=== PATIENT | female | born 1980 | race Caucasian/White ===

== ENCOUNTER → 2016-09-22 | Outpatient (CLI) | payer OTHER ==
[~2016-09-22] VITALS: Ht 157.5 cm; Wt 139.2 kg
[~2016-09-22] MED LIST: ACET500T13 PO; CHLORHEXIDINE GLUCONATE 2 % 1 PACK (2 CLOTHS) TOPICAL PRN; DO NOT ADM ANY ANTICOAGULANT DRUGS PRN; HYDR25TA5 PO; INSULIN HUMAN REGULAR 1,000 UNITS/10 ML VIAL SQ PRN; LACTATED RINGER'S 1000 ML IV PRN; LISI-519 PO; METOPROLOL TARTRATE 25 MG TAB PO PRN; MIDAZOLAM HCL 2 MG/2 ML VIAL ONE; MULT1CHW33 PO; POVIDONE IODINE 5% (ANTISEPSIS KIT) 4 APPLICATIONS EACH NARE PRN; PROPOFOL 200 MG/20 ML AMP IV ONE; SODIUM CHLORID 0.9% 500 ML IV PRN; VENL1CAP38 PO; VIST25CA PO
[2016-09-22 05:59] VITALS: BP 131/74; PULSE 88; RESP 20; TEMP 98.2; O2SAT 97
--- NOTE | 2016-09-22 07:58 | GIPROC ---
[facility] [address] [facility]. [facility], [address] EGD PROCEDURE REPORT EXAM DATE: 09/22/2016 PATIENT NAME: Massiel Haider MR #: [id number] BIRTHDATE: 1980 ATTENDING: Alexandr To MD ORDER #: [id number] SUPERINTENDENT AUTOMOTIVE: Sloane Cohen and Daphne Mckeon STATUS: outpatient INDICATIONS: The patient is a 36 yr old female here for an EGD due to heartburn, gastritis PROCEDURE PERFORMED: EGD w/ biopsy MEDICATIONS: Per Anesthesia and None. TOPICAL ANESTHETIC: none CONSENT: The patient understands the risks and benefits of the procedure and understands that these risks include, but are not limited to: sedation, allergic reaction, infection, perforation and/or bleeding. Alternative means of evaluation and treatment include, among others: physical exam, x-rays, and/or surgical intervention. The patient elects to proceed with this endoscopic procedure. medical equipment was checked for proper function. Hand hygiene and appropriate measures for infection prevention was taken. After the risks, benefits and alternatives of the procedure were thoroughly explained, Informed consent was verified, confirmed and timeout was successfully executed by the treatment team. The patient was anesthetized with topical anesthesia and the [employer] [id number] endoscope was introduced through the mouth and advanced to the second portion of the duodenum. Biopsy done to antrum for H. Pylori. Distal antrum gastritis. Biopsy done for gastrititis. Retroflexed views revealed no abnormalities The gastroscope was then slowly withdrawn and removed. STOMACH: There was mild gastritis in the gastric antrum. ADVERSE EVENTS: There were no complications. IMPRESSIONS: 1. There was mild gastritis in the gastric antrum 2. Retroflexed views revealed no abnormalities RECOMMENDATIONS: 1. Await biopsy results. Biopsy results will not be ready for 7-10 days. If you don't hear from us in two weeks, call our office for biopsy results. 2. Start PPI PATIENT CONDITION: fair DISPOSITION: Home REPEAT EXAM: NONE Alexandr To MD eSigned: Alexandr To MD 09/22/2016 7:57 AM cc: Hussain Flaherty M.D.
[2016-09-22 09:00] VITALS: BP 135/76; PULSE 82; RESP 18; TEMP 98.9; O2SAT 97
== END ==
LOC: HSDC 05:32
PROVIDERS: ATTEND Surgery
DX: K31.89 Other diseases of stomach and duodenum (principal); K29.70 Gastritis, unspecified, without bleeding; R12 Heartburn; E66.01 Morbid (severe) obesity due to excess calories; Z68.43 Body mass index [BMI] 50.0-59.9, adult
CPT/HCPCS: 00740; 43239; 88305; 88312; J2250; J3010

== ENCOUNTER 2017-02-15 05:21 | Inpatient (IN) | payer OTHER ==
[~2017-02-15] VITALS: Ht 157.5 cm; Wt 125.0 kg
[~2017-02-15 05:21] MED LIST changes: -ACET500T13 PO; -CHLORHEXIDINE GLUCONATE 2 % 1 PACK (2 CLOTHS) TOPICAL PRN; -DO NOT ADM ANY ANTICOAGULANT DRUGS PRN; -INSULIN HUMAN REGULAR 1,000 UNITS/10 ML VIAL SQ PRN; -LACTATED RINGER'S 1000 ML IV PRN; -METOPROLOL TARTRATE 25 MG TAB PO PRN; -MIDAZOLAM HCL 2 MG/2 ML VIAL ONE; +ONETAB13 PO; -POVIDONE IODINE 5% (ANTISEPSIS KIT) 4 APPLICATIONS EACH NARE PRN; -PROPOFOL 200 MG/20 ML AMP IV ONE; -SODIUM CHLORID 0.9% 500 ML IV PRN
[2017-02-15] MEDS ORDERED: ONDANSETRON HCL 4 MG/2 ML VIAL IV PUSH SCH (05:45)
[2017-02-15] MEDS ORDERED: SCOPOLAMINE 1.5 MG PATCH T-DERMAL SCH (05:45)
[2017-02-15] MEDS ORDERED: SODIUM CHLORID 0.9% 500 ML IV PRN (05:45)
[2017-02-15] MEDS ORDERED: CHLORHEXIDINE GLUCONATE 2 % 1 PACK (2 CLOTHS) TOPICAL PRN (05:45)
[2017-02-15] MEDS ORDERED: METOPROLOL TARTRATE 25 MG TAB PO PRN (05:45)
[2017-02-15] MEDS ORDERED: ceFAZolin 2 GM PREMIX 50 ML IV SCH (05:45)
[2017-02-15] MEDS ORDERED: LACTATED RINGER'S 1000 ML IV PRN (05:45)
[2017-02-15] MEDS ORDERED: POVIDONE IODINE 5% (ANTISEPSIS KIT) 4 APPLICATIONS EACH NARE PRN (05:45)
[2017-02-15] MEDS ORDERED: metroNIDAZOLE 500 MG INJ 100 ML IV SCH (05:45)
[2017-02-15] MEDS ORDERED: ACETAMINOPHEN 1000 MG/100 ML 100 ML IV SCH (06:00)
[2017-02-15] MEDS ORDERED: APREPITANT 40 MG CAP PO SCH (06:00)
[2017-02-15] MEDS ORDERED: ECHI1CAP PO (06:08)
[2017-02-15] MEDS ORDERED: ACETAMINOPHEN 1000 MG/100 ML 100 ML IV ONE (06:46)
[2017-02-15] MEDS ORDERED: BUPIVACAINE/EPINEPHRINE 0.25% 50 ML VIAL ONE (07:06)
[2017-02-15] MEDS ORDERED: METHYLENE BLUE 10 MG/ML VIAL OTHER ONE (09:12)
[2017-02-15] MEDS ORDERED: diphenhydrAMINE HCL ELIXIR 12.5 MG/5 ML CUP PO PRN (11:15)
[2017-02-15] MEDS ORDERED: NALOXONE HCL 0.4 MG/ML AMP IV PUSH PRN (11:15)
[2017-02-15] MEDS ORDERED: Post-op Orders (for Pharmacy) OTHER ONE (11:15)
[2017-02-15] MEDS ORDERED: ENALAPRILAT 1.25 MG/ML VIAL IV PUSH PRN (11:15)
[2017-02-15] MEDS ORDERED: ACETAMINOPHEN 325MG/HYDROcodone 7.5MG/15ML UDC PO PRN (11:15)
[2017-02-15] MEDS ORDERED: *morphine SULFATE 4 MG/ML PERIprocedure ONLY ONE (11:42)
[2017-02-15] MEDS ORDERED: DO NOT ADM ANY ANTICOAGULANT DRUGS PRN (11:44)
[2017-02-15] MEDS ORDERED: *PROMETHAZINE 25 MG/ML VIAL PERIprocedural use ONLY ONE (11:50)
[2017-02-15] MEDS ORDERED: KETOROLAC TROMETHAMINE 30 MG/ML (IVP) VIAL ONE (11:54)
[2017-02-15] MEDS ORDERED: LACTATED RINGER'S 1000 ML INJ 2,000 ML IV ONE (12:00)
[2017-02-15] MEDS ORDERED: DEXAMETHASONE SOD PHOS 4 MG/ML VIAL IV ONE (12:00)
[2017-02-15] MEDS ORDERED: PROPOFOL 200 MG/20 ML AMP IV ONE (12:00)
[2017-02-15] MEDS ORDERED: NORMOSOL R INJ 1,000 ML IV ONE (12:00)
[2017-02-15] MEDS ORDERED: VECURONIUM BROMIDE 20 MG VIAL IV ONE (12:00)
[2017-02-15] MEDS ORDERED: LIDOCAINE HCL 1% PF 5 ML SYRINGE OTHER ONE (12:00)
[2017-02-15] MEDS ORDERED: ePHEDrine/NS 25 MG/5 ML SYRINGE IV ONE (12:00)
[2017-02-15] MEDS ORDERED: ROCURONIUM INJ 50 MG/5 ML SYRINGE IV PUSH ONE (12:00)
[2017-02-15] MEDS ORDERED: *MEPERIDINE 25 MG INJ VIAL PERIprocedural Use ONLY ONE (12:02)
[2017-02-15] MEDS: METOCLOPRAMIDE HCL 10 MG/2 ML VIAL IV PUSH SCH ×2 (13:00→19:52)
[2017-02-15] MEDS: D5-1/2 NS + KCL 20 MEQ INJ 1,000 ML IV SCH ×2 (13:00→19:30)
[2017-02-15] MEDS: ACETAMINOPHEN 1000 MG/100 ML 100 ML IV SCH ×2 (13:00→19:55)
[2017-02-15] MEDS: MORPHINE SULFATE 30 MG/30 ML PCA IV SCH ×2 (13:08→22:44)
[2017-02-15 13:38] VITALS: BP 123/59; PULSE 53; RESP 18; TEMP 97.4; O2SAT 98
[2017-02-15] MEDS: metroNIDAZOLE 500 MG INJ 100 ML IV SCH ×2 (15:18→23:22)
[2017-02-15] MEDS: ENOXAPARIN SODIUM 40 MG/0.4 ML SYRINGE SQ SCH (15:19)
[2017-02-15 16:00] VITALS: BP 123/61; PULSE 57; RESP 18; TEMP 97.4; O2SAT 99
[2017-02-15] MEDS: diphenhydrAMINE HCL 50 MG/ML VIAL IV PUSH PRN (19:54)
[2017-02-15 20:00] VITALS: BP 117/64; PULSE 60; RESP 21; TEMP 96.2; O2SAT 92
[2017-02-15] MEDS: SODIUM CHLORIDE 0.9% FLUSH 10 ML FLUSH IV FLUSH SCH (20:03)
[2017-02-15 20:22] VITALS: O2SAT 96
[2017-02-15] MEDS: RESP: ALBUTEROL 2.5 MG/3 ML NEB (SCH) INH (20:22)
[2017-02-15] MEDS: PCA - TOTAL MG MORPHINE DELIVERED PER SHIFT SCH (22:00)
[2017-02-16] VITALS (8 sets, daily range): BP systolic 102–140; BP diastolic 53–80; PULSE 55–90; RESP 17–21; TEMP 96.2–98.6; O2SAT 92–99
[2017-02-16] MEDS: RESP: ALBUTEROL 2.5 MG/3 ML NEB (SCH) INH ×6 (00:35→20:00)
[2017-02-16] MEDS: METOCLOPRAMIDE HCL 10 MG/2 ML VIAL IV PUSH SCH ×2 (00:43→06:03)
[2017-02-16] MEDS: diphenhydrAMINE HCL 50 MG/ML VIAL IV PUSH PRN ×6 (00:43→20:57)
[2017-02-16] MEDS: ACETAMINOPHEN 1000 MG/100 ML 100 ML IV SCH ×2 (01:37→07:09)
[2017-02-16] MEDS: D5-1/2 NS + KCL 20 MEQ INJ 1,000 ML IV SCH ×3 (03:30→17:45)
[2017-02-16] MEDS: PCA - TOTAL MG MORPHINE DELIVERED PER SHIFT SCH (06:00)
[2017-02-16] MEDS: metroNIDAZOLE 500 MG INJ 100 ML IV SCH (06:04)
[2017-02-16] MEDS: PANTOPRAZOLE SOD 40 MG DELAYED RELEASE TAB PO SCH (08:41)
[2017-02-16] MEDS: SODIUM CHLORIDE 0.9% FLUSH 10 ML FLUSH IV FLUSH SCH ×2 (08:43→20:30)
--- NOTE | 2017-02-16 10:08 | HHI.PR ---
Subjective Subjective Notes pt comfortable no cp no sob c/o itching Objective Vitals/I&O Vital Signs Date Time Temp Pulse Resp B/P (MAP) Pulse Ox O2 Delivery O2 Flow Rate FiO2 02/16/17 08:56 93 02/16/17 08:00 97.9 82 19 107/61 (76) 02/15/17 20:22 21 02/15/17 13:25 Nasal Cannula 3 Abdomen: Post-op tenderness Extremities: Perfused Narrative Exam macey serosang Wound Wound : Wound Location: Abdomen Appearance: Clean & Dry A/P Assessment and Plan S/P lap DS pt doing well will get UGI in am ok for ice chips ambulate Hussain Flaherty MD Feb 16, 2017 10:08
[2017-02-16] MEDS ORDERED: NALOXONE HCL 0.4 MG/ML AMP IV PUSH PRN (10:15)
[2017-02-16] MEDS: ONDANSETRON HCL 4 MG/2 ML VIAL IV PUSH PRN ×2 (10:35→20:57)
[2017-02-16] MEDS: HYDROmorphone HCL PCA 6 MG/30 ML IV SCH (10:56)
[2017-02-16] MEDS ORDERED: METOCLOPRAMIDE HCL 10 MG/2 ML VIAL IV PUSH PRN (11:15)
[2017-02-16 11:37] LABS: AUTOMATED NEUTROPHIL # 7.5 TH/MM3 (1.8-7.7); BASOPHIL % 0.2 % (0.0-2.0); HEMOGLOBIN 11.3 GM/DL (11.6-15.3); LYMPH % 21.7 % (9.0-44.0); LYMPHOCYTE # 2.3 TH/MM3 (1.0-4.8); MEAN CELL VOLUME 85.9 FL (80.0-100.0); MEAN CORPUSCULAR HEMOGLOBIN 28.6 PG (27.0-34.0); MEAN CORPUSCULAR HGB CONC 33.3 % (32.0-36.0); MEAN PLATELET VOLUME 8.5 FL (7.0-11.0); MONO % 6.9 % (0.0-8.0); MONOCYTE # 0.7 TH/MM3 (0-0.9); NEUT % 71.2 % (16.0-70.0); PLATELET COUNT 264 TH/MM3 (150-450); RED BLOOD COUNT 3.95 MIL/MM3 (4.00-5.30); RED CELL DISTRIBUTION WIDTH 15.5 % (11.6-17.2); WHITE BLOOD COUNT 10.6 TH/MM3 (4.0-11.0)
[2017-02-16 12:03] LABS: BICARBONATE 26.5 MEQ/L (21.0-32.0); CALCIUM 8.2 MG/DL (8.5-10.1); CREATININE 0.53 MG/DL (0.50-1.00)
[2017-02-16] MEDS: PCA - TOTAL MG DILAUDID DELIVERED PER SHIFT SCH ×2 (14:00→22:00)
[2017-02-16] MEDS: POTASSIUM CHLOR 20 MEQ PREMIX 100 ML IV SCH ×2 (16:14→17:44)
[2017-02-16] MEDS: ENOXAPARIN SODIUM 40 MG/0.4 ML SYRINGE SQ SCH (16:15)
[2017-02-17] VITALS (8 sets, daily range): BP systolic 117–154; BP diastolic 53–91; PULSE 67–100; RESP 18; TEMP 98.6–99.2; O2SAT 95–99
[2017-02-17] MEDS: ACETAMINOPHEN 325MG/HYDROcodone 7.5MG/15ML UDC PO PRN ×6 (00:28→20:37)
[2017-02-17] MEDS: HYDROmorphone HCL PCA 6 MG/30 ML IV SCH (00:31)
[2017-02-17] MEDS: RESP: ALBUTEROL 2.5 MG/3 ML NEB (SCH) INH ×2 (03:27)
[2017-02-17] MEDS: D5-1/2 NS + KCL 20 MEQ INJ 1,000 ML IV SCH ×3 (03:30→18:02)
[2017-02-17] MEDS: diphenhydrAMINE HCL 50 MG/ML VIAL IV PUSH PRN (04:26)
[2017-02-17] MEDS: ONDANSETRON HCL 4 MG/2 ML VIAL IV PUSH PRN ×4 (04:26→20:37)
[2017-02-17] MEDS: PCA - TOTAL MG DILAUDID DELIVERED PER SHIFT SCH ×4 (05:33→20:45)
[2017-02-17] MEDS: SODIUM CHLORIDE 0.9% FLUSH 10 ML FLUSH IV FLUSH SCH ×2 (08:12→20:32)
[2017-02-17] MEDS: PANTOPRAZOLE SOD 40 MG DELAYED RELEASE TAB PO SCH ×2 (09:00→20:36)
[2017-02-17] MEDS ORDERED: DIATRIZOATE MEGLUM/DIATRIZOATE SOD 120 ML BTL (for RAD DIAG) PO ONE (10:26)
--- NOTE | 2017-02-17 12:09 | RADRPT ---
EXAM DATE/TIME: 02/17/2017 09:44 [facility] COMPARISON: No previous studies available for comparison. INDICATIONS : Duodenal Switch. FLUORO TIME: 1.8 minutes IMAGE COUNT: 2 CONTRAST: 1. MD Lombardo MEDICAL HISTORY : None. SURGICAL HISTORY : Hysterectomy. ENCOUNTER: Subsequent ACUITY: 2 days PAIN SCORE: 4/10 LOCATION: Bilateral Abdomen. FINDINGS: Patient ingested Gastrografin without difficulty. Gastroesophageal junction is unremarkable. Postsurgical changes are seen in the stomach following gastric sleeve surgery. The gastric wall is in tact without evidence of leakage. A duodenal enterostomy has been created. There is satisfactory flow into the efferent limb there is s mall collection of contrast is seen to the left of the anastomosis which may represent the small affe rent blind limb. There is no identifiable free leakage of Gastrografin. CONCLUSION: Status post gastric sleeve surgery and duodenal enterostomy bypass as described. Cornell Grant MD on February 17, 2017 at 12:05 Board Certified Radiologist. This report was verified electronically.
--- NOTE | 2017-02-17 12:16 | HHI.PR ---
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
[2017-02-17] MEDS ORDERED: METHYLENE BLUE 10 MG/ML VIAL PO ONE (13:15)
[2017-02-17 13:25] LABS: AUTOMATED NEUTROPHIL # 6.3 TH/MM3 (1.8-7.7); BASOPHIL # 0.1 TH/MM3 (0-0.2); BASOPHIL % 0.6 % (0.0-2.0); HEMATOCRIT 35.2 % (35.0-46.0); HEMOGLOBIN 11.5 GM/DL (11.6-15.3); LYMPH % 19.1 % (9.0-44.0); LYMPHOCYTE # 1.6 TH/MM3 (1.0-4.8); MEAN CELL VOLUME 87.3 FL (80.0-100.0); MEAN CORPUSCULAR HEMOGLOBIN 28.6 PG (27.0-34.0); MEAN CORPUSCULAR HGB CONC 32.8 % (32.0-36.0); MEAN PLATELET VOLUME 8.3 FL (7.0-11.0); MONO % 7.5 % (0.0-8.0); MONOCYTE # 0.7 TH/MM3 (0-0.9); NEUT % 72.8 % (16.0-70.0); PLATELET COUNT 256 TH/MM3 (150-450); RED BLOOD COUNT 4.03 MIL/MM3 (4.00-5.30); RED CELL DISTRIBUTION WIDTH 15.4 % (11.6-17.2); WHITE BLOOD COUNT 8.6 TH/MM3 (4.0-11.0)
[2017-02-17] MEDS: ENOXAPARIN SODIUM 40 MG/0.4 ML SYRINGE SQ SCH (17:07)
[2017-02-18] VITALS: BP 133/74; PULSE 68; RESP 18; TEMP 99.5; O2SAT 96
[2017-02-18] MEDS: D5-1/2 NS + KCL 20 MEQ INJ 1,000 ML IV SCH ×3 (00:42→16:44)
[2017-02-18] MEDS: ACETAMINOPHEN 325MG/HYDROcodone 7.5MG/15ML UDC PO PRN ×5 (00:42→20:58)
[2017-02-18 08:00] VITALS: BP 133/77; PULSE 70; RESP 18; TEMP 97.4; O2SAT 100
[2017-02-18] MEDS: SODIUM CHLORIDE 0.9% FLUSH 10 ML FLUSH IV FLUSH SCH ×2 (08:56→20:57)
[2017-02-18] MEDS: ONDANSETRON HCL 4 MG/2 ML VIAL IV PUSH PRN ×3 (08:57→22:53)
[2017-02-18] MEDS: PANTOPRAZOLE SOD 40 MG DELAYED RELEASE TAB PO SCH (08:58)
[2017-02-18 12:00] VITALS: BP 144/80; PULSE 75; RESP 18; TEMP 96.8; O2SAT 100
--- NOTE | 2017-02-18 12:15 | HHI.PR ---
Subjective Subjective Notes pt denies cp no sob no nausea Objective Vitals/I&O Vital Signs Date Time Temp Pulse Resp B/P (MAP) Pulse Ox O2 Delivery O2 Flow Rate FiO2 02/18/17 12:00 96.8 75 18 144/80 (101) 100 02/17/17 17:34 21 02/15/17 13:25 Nasal Cannula 3 Labs Laboratory Tests Test 02/17/17 12:20 02/17/17 12:53 White Blood Count 8.6 Red Blood Count 4.03 Hemoglobin 11.5 Hematocrit 35.2 Mean Corpuscular Volume 87.3 Mean Corpuscular Hemoglobin 28.6 Mean Corpuscular Hemoglobin Concent 32.8 Red Cell Distribution Width 15.4 Platelet Count 256 Mean Platelet Volume 8.3 Neutrophils (%) (Auto) 72.8 Lymphocytes (%) (Auto) 19.1 Monocytes (%) (Auto) 7.5 Eosinophils (%) (Auto) 0.0 Basophils (%) (Auto) 0.6 Neutrophils # (Auto) 6.3 Lymphocytes # (Auto) 1.6 Monocytes # (Auto) 0.7 Eosinophils # (Auto) 0.0 Basophils # (Auto) 0.1 CBC Comment DIFF FINAL Differential Comment Radiology Last Impressions Upper GI Series 02/17/17 0700 Signed Impressions: Service Date/Time: Friday, February 17, 2017 09:44 - CONCLUSION: Status post gastric sleeve surgery and duodenal enterostomy bypass as described. Cornell Grant MD Abdomen: Post-op tenderness Extremities: Perfused Narrative Exam macey serosang Wound Wound : Wound Location: Abdomen Appearance: Clean & Dry A/P Assessment and Plan S/P lap DS pt doing well no evidence on leak will start phase 1 diet ambulate decrease IVF start back home meds Hussain Flaherty MD Feb 18, 2017 12:15
[2017-02-18] MEDS: VENLAFAXINE HCL XR 37.5 MG CAP PO SCH (12:22)
[2017-02-18 12:47] LABS: AMYLASE BODY FLUID 31 U/L; AMYLASE BODY FLUID TYPE JP DRAINAGE
[2017-02-18 16:00] VITALS: BP 113/67; PULSE 74; RESP 18; TEMP 98.7; O2SAT 99
[2017-02-18] MEDS: ENOXAPARIN SODIUM 40 MG/0.4 ML SYRINGE SQ SCH (16:19)
[2017-02-18 20:21] VITALS: BP 129/72; PULSE 67; RESP 20; TEMP 99.7; O2SAT 95
[2017-02-18] MEDS: SODIUM CHLORIDE 0.9% FLUSH 10 ML FLUSH IV FLUSH PRN (22:53)
[2017-02-19 00:08] VITALS: BP 150/85; PULSE 65; RESP 20; TEMP 98; O2SAT 97
[2017-02-19] MEDS: ACETAMINOPHEN 325MG/HYDROcodone 7.5MG/15ML UDC PO PRN ×4 (01:17→13:23)
[2017-02-19] MEDS: D5-1/2 NS + KCL 20 MEQ INJ 1,000 ML IV SCH ×2 (03:39→12:45)
[2017-02-19] MEDS: ONDANSETRON HCL 4 MG/2 ML VIAL IV PUSH PRN ×2 (05:23→13:23)
[2017-02-19] MEDS: SODIUM CHLORIDE 0.9% FLUSH 10 ML FLUSH IV FLUSH PRN (05:25)
[2017-02-19 08:00] VITALS: BP 129/86; PULSE 61; RESP 18; TEMP 96.6; O2SAT 94
[2017-02-19] MEDS: VENLAFAXINE HCL XR 37.5 MG CAP PO SCH (08:24)
[2017-02-19] MEDS: PANTOPRAZOLE SOD 40 MG DELAYED RELEASE TAB PO SCH (08:24)
[2017-02-19] MEDS: SODIUM CHLORIDE 0.9% FLUSH 10 ML FLUSH IV FLUSH SCH (09:00)
[2017-02-19 12:00] VITALS: BP 167/75; PULSE 66; RESP 16; TEMP 97.6; O2SAT 95
--- NOTE | 2017-03-01 13:06 | MP ---
cc: MARILEEHOLLIE DATE OF SURGERY 02/15/2017 DATE OF 1980 PREOPERATIVE DIAGNOSIS Super obesity with a BMI of 50, complicated by essential hypertension and obstructive sleep apnea. POSTOPERATIVE DIAGNOSIS Super obesity with a BMI of 50, complicated by essential hypertension and obstructive sleep apnea. PROCEDURE Laparoscopic duodenal switch, 120 cm common channel, 150 cm alimentary tract. SURGEON Hollie Flaherty. GIS DEVELOPER SURGEON Alexandr To. Dr. To's assistance was necessary for the procedure due to the complexity of the procedure. Dr. To assisted with manipulation and exposure during the procedure. Dr. To was present for the entire procedure. The advertising assistant manager provided by [employer] was utilized for managing the camera. ANESTHESIA General endotracheal. ESTIMATED BLOOD LOSS Scant. FINDINGS During the leak test there was a leak just distal to the anastomosis. This was closed in a simple interrupted manner and a second leak test performed was negative for leaks. Fatty liver. SPECIMEN None. COMPLICATIONS None. OPERATION The patient was brought to the operating room and placed on the operating table in a supine position. A bilateral sequential inflation device was placed on the lower extremities. General anesthesia was instituted. A Tipton catheter was placed. Antibiotics were initiated. The abdomen was prepped and draped sterilely. A point in the periumbilical region was anesthetized with 0.25% Marcaine with epinephrine. A skin incision was made. A 5 mm Optiview port was placed under direct vision and pneumoperitoneum created. Under direct vision two 12 mm left upper quadrant and a 5 mm left lower quadrant port was placed. Two 12 mm right upper quadrant ports and a 5 mm epigastric port were placed. Prior to placement of all ports the skin and peritoneum were anesthetized with 0.25% Marcaine with epinephrine. The patient was placed in reverse Trendelenburg position. A Lay-Flex retractor was placed and the left lobe of the liver was retracted. The falciform ligament was taken out of the field using a 2-0 nylon suture. Attention was focused on the duodenum. The pylorus was identified. A point 3 cm distal along the duodenum was identified. The peritoneum both medially and laterally along the duodenal bulb was dissected minimally using the Harmonic scalpel. The posterior duodenal space was further dissected using a Gold Finger followed by the laparoscopic band passer. The duodenum was then stapled 3 cm distal to the pylorus using the Lockhart Flex power stapler blue load. Bleeding points were controlled using the Harmonic. Attention was then focused on the stomach. The patient was placed with her left side up. The vasculature along the greater curvature of the stomach was using the Harmonic scalpel starting a distance of approximately 10 cm proximal to the pylorus. This was carried towards the angle of His. The angle of His was taken down sharply. The posterior ligamentous attachment was sharply . A 36-Swedish ViSiGi bougie was placed at the start of the case. Division of the stomach was then started approximately 10 cm proximal to the pylorus. This was performed using an Lockhart Flex stapler. This was carried towards the angle of His to excise approximately 60% of the stomach. The bougie was used as a guide and the stapler at no point was hugging the bougie. The first firing was with a green load followed by three gold loads. All staple loads were reinforced with Seamguard. The gastrocolic ligament was then sutured to the posterior leaflet of the Seamguard. Attention was then focused on the lower abdomen. The patient was placed in Trendelenburg position. The ileocecal valve was identified. The bowel was measured proximally from the ileocecal valve to a distance of 120 cm. This was to be the common channel. This was marked with hemoclips. The regimen was carried further from this [place] another 150 cm proximally. The small bowel was divided in this region using an Lockhart Flex stapler white load. The distal segment was marked. It was then brought up to the duodenum and a duodenoileostomy was created using a single layer handsewn anastomosis. The biliopancreatic limb was then brought down to the clips that were marked initially at 120 cm and a ileoileostomy was created using an Lockhart Flex stapler white load. Two firings were taken, one proximally and one distally to create the anastomosis. The defect was then stapled closed. The defect at the ileostomy in the mesentery was then closed with 2-0 silk suture in a running manner. Attention was then focused back at the duodenoileostomy. The bowel was clamped distal to the anastomosis. Methylene blue diluted with saline was instilled through the ViSiGi. The stomach was distended as well as the proximal bowel. There was extravasation of contrast. The source of extravasation was identified. A hole in the small bowel distal to the anastomosis posteriorly was closed with 3-0 Vicryl in an interrupted manner. A second leak test was performed and there was no leak at the end of the procedure. A 10 round MILANA was placed posterior to the gastrojejunostomy and pulled out through the 5 mm port site in the left upper quadrant. Evicel was then placed over the duodenoileostomy and ileoileostomy. The Lay-Flex retractor was then removed. The CO2 was released. All ports were removed. All skin incisions were closed with 4-0 Monocryl. The patient was awakened and taken to the recovery room stable. MD BRAN Henriquez/ANUSHA /9:57 AM /12:42 PM [facility]
== END 2017-02-19 15:10 | disposition home or self-care (01) | DRG 621 ==
LOC: HSDI 05:21 → N07B 13:37
PROVIDERS: ADMIT Surgery; ATTEND Surgery
PROC: 0D194ZB Bypass Duodenum to Ileum, Percutaneous Endoscopic Approach (ICD-10-PCS; principal; 2017-02-15 07:29)
DX: E66.01 Morbid (severe) obesity due to excess calories (principal); K76.0 Fatty (change of) liver, not elsewhere classified; I10 Essential (primary) hypertension; G47.30 Sleep apnea, unspecified; Z87.891 Personal history of nicotine dependence; Z68.43 Body mass index [BMI] 50.0-59.9, adult; G47.33 Obstructive sleep apnea (adult) (pediatric)
CPT/HCPCS: 74240; 80048; 82150; 83735; 85025; 94150; 94640; 94664; J0131; J0690; J1100; J1170; J1200; J1650; J1885; J2175; J2270; J2405; J2550; J2765; J3480; J7120; J7613; J8501; Q9963

== ENCOUNTER 2017-02-24 14:09 | Emergency (ER) | payer MEDICAID, OTHER ==
[~2017-02-24] VITALS: Ht 157.5 cm; Wt 127.0 kg
[~2017-02-24 14:09] MED LIST changes: +ECHI1CAP PO; -MULT1CHW33 PO
[2017-02-24 14:10] VITALS: BP 176/83; PULSE 58; RESP 18; TEMP 99.1; O2SAT 99
[2017-02-24] MEDS ORDERED: ONDANSETRON HCL 4 MG/2 ML VIAL IM ONE (14:30)
[2017-02-24] MEDS ORDERED: ZOFR4TAB3 SL (14:49)
[2017-02-24] MEDS ORDERED: HYDR1ELX PO (14:49)
[2017-02-24] MEDS ORDERED: MORPHINE SULFATE 4 MG/ML INJ IV PUSH ONE (15:15)
[2017-02-24] MEDS ORDERED: ONDANSETRON HCL 4 MG/2 ML VIAL IVP ONE (15:15)
[2017-02-24] MEDS ORDERED: SODIUM CHLORIDE 0.9% FLUSH 10 ML FLUSH IV FLUSH PRN (15:15)
[2017-02-24 15:22] VITALS: PULSE 57; RESP 16; O2SAT 96
[2017-02-24] MEDS ORDERED: MORPHINE SULFATE 2 MG/ML INJ IV PUSH ONE ×2 (15:30→17:00)
[2017-02-24 15:43] LABS: WHITE BLOOD COUNT 9.6 TH/MM3 (4.0-11.0)
[2017-02-24 15:44] LABS: AUTOMATED NEUTROPHIL # 8.7 TH/MM3 (1.8-7.7); BASOPHIL % 0.3 % (0.0-2.0); HEMATOCRIT 36.4 % (35.0-46.0); HEMOGLOBIN 12.3 GM/DL (11.6-15.3); LYMPH % 8.1 % (9.0-44.0); LYMPHOCYTE # 0.8 TH/MM3 (1.0-4.8); MEAN CELL VOLUME 85.7 FL (80.0-100.0); MEAN CORPUSCULAR HGB CONC 33.8 % (32.0-36.0); MEAN PLATELET VOLUME 8.1 FL (7.0-11.0); MONO % 1.5 % (0.0-8.0); MONOCYTE # 0.1 TH/MM3 (0-0.9); NEUT % 90.1 % (16.0-70.0); PLATELET COUNT 355 TH/MM3 (150-450); RED BLOOD COUNT 4.25 MIL/MM3 (4.00-5.30); RED CELL DISTRIBUTION WIDTH 14.9 % (11.6-17.2)
[2017-02-24 15:52] LABS: INTERNATIONAL NORMALIZED RATIO 1.1 RATIO; PROTHROMBIN TIME - PATIENT 11.1 SEC (9.8-11.6)
[2017-02-24 16:05] LABS: ALBUMIN 3.4 GM/DL (3.4-5.0); ALT (GPT) 42 U/L (10-53); AST (GOT) 18 U/L (15-37); BICARBONATE 20.6 MEQ/L (21.0-32.0); BLOOD UREA NITROGEN 9 MG/DL (7-18); CALCIUM 8.6 MG/DL (8.5-10.1); CHLORIDE 104 MEQ/L (98-107); CREATININE 0.51 MG/DL (0.50-1.00); GLOMERULAR FILTRATION RATE 137 ML/MIN (>89); GLUCOSE,RANDOM 106 MG/DL (74-106); LIPASE 80 U/L (73-393); SODIUM (NA) 138 MEQ/L (136-145)
[2017-02-24 16:13] LABS: ALKALINE PHOSPHATASE 106 U/L (45-117); TOTAL BILIRUBIN ADULT 0.3 MG/DL (0.2-1.0); TOTAL PROTEIN 7.4 GM/DL (6.4-8.2)
--- NOTE | 2017-02-24 16:33 | RADRPT ---
EXAM DATE/TIME: 02/24/2017 16:06 [facility] COMPARISON: GASTROGRAFIN GI SERIES, February 17, 2017, 9:44. INDICATIONS : Vomiting, abdominal pain starting today. Post op duodenal switch 1 week ago FLUORO TIME: 1.1 minutes IMAGE COUNT: 11 CONTRAST: 1. MD Lombardo MEDICAL HISTORY : None. SURGICAL HISTORY : Hysterectomy. ENCOUNTER: Initial ACUITY: 1 day PAIN SCORE: 10/10 LOCATION: Bilateral abdomen FINDINGS: Preliminary film is unremarkable. Patient has had duodenal switch. This is small linear gastric remnant. The duodenal anastomosis is patent with some edema evident. This does not impede the flow of Gastrografin. There is no leak in the enteric limb anastomosis. CONCLUSION: Minimal edema at the anastomosis that does not impede the flow of Gastrografin into t he enteric limb. Justin Gilbert MD FACR on February 24, 2017 at 16:28 Board Certified Radiologist. This report was verified electronically.
[2017-02-24] MEDS ORDERED: DIATRIZOATE MEGLUM/DIATRIZOATE SOD 120 ML BTL (for RAD DIAG) PO ONE (16:38)
--- NOTE | 2017-02-24 16:46 | PD ---
HPI Chief Complaint: Abdominal Pain Time Seen by Provider: 14:54 Travel History International Travel<30 days: No Contact w/Intl Traveler<30days: No Traveled to known affect area: No History of Present Illness HPI 37-year-old female that presents to the ED for evaluation of abdominal pain. Patient had recent surgery for a laparoscopic DS by Dr Flaherty. Been doing well since surgery until this morning when she woke up with severe epigastric pain. Seen at Dr Flaherty's office, given zofran PO and sent here for evaluation. Per patient pain is 10/10. Nausea and vomit. Per patient it felt like vomit smelled like stool. Yesterday she started eating puree. She has been in liquid diet before. No fevers, chills or sweats. No blood. No diarrhea. No chest pain or SOB. Take no blood thinners. Pain stays on epigastric area. No allergies to meds. PFSH Past Medical History Cancer: No Cardiovascular Problems: No Diabetes: No Endocrine: No Gastrointestinal Disorders: Yes ( OBESITY) Genitourinary: No Hepatitis: No Hiatal Hernia: No Hypertension: Yes Immune Disorder: Yes (RA) Musculoskeletal: Yes (RA) Neurologic: No Psychiatric: Yes (DEPRESSION, ANXIETY) Reproductive: No Respiratory: Yes ( SLEEP APNEA WITH CPAP) Thyroid Disease: No Tetanus Vaccination: < 5 Years ?: Not Past Surgical History Abdominal Surgery: Yes (Lap [place] 2014, DUODENAL SWITCH) AICD: No Ear Surgery: No Endocrine Surgery: No Eye Surgery: No Genitourinary Surgery: No Gynecologic Surgery: Yes (hysterectomy) Hysterectomy: Yes Joint Replacement: No Oral Surgery: Yes (TUBES IN EARS CHILD) Pacemaker: No Thoracic Surgery: No Other Surgery: Yes Social History Alcohol Use: No Tobacco Use: No Substance Use: No Allergies-Medications (Allergen,Severity, Reaction): Coded Allergies: No Known Allergies (Unverified Allergy, Unknown, 02/24/17) adhesive tape (Verified Allergy, Unknown, TERRIBLE RASH, 02/24/17) PAPER TAPE OK, STERI STRIPS OK Reported Meds & Prescriptions Reported Meds & Active Scripts Active Reported Zofran Odt (Ondansetron Odt) 4 Mg Tab 4 Mg SL Q6HR PRN Lortab Liq (Hydrocodone-Acetaminophen Liq) 10-300 Mg/15 Ml Elix 15 Ml PO Q6H PRN One Daily For Women (Multiple Vitamins W/ Minerals) 0.4 Mg-18 Mg Tab 0.4 Tab PO DAILY Effexor XR 24 HR (Venlafaxine HCl) 37.5 Mg Cap 37.5 Mg PO DAILY Review of Systems Except as stated in HPI: all other systems reviewed are Neg Physical Exam Narrative GENERAL: SKIN: Warm and dry. HEAD: Atraumatic. Normocephalic. EYES: Pupils equal and round. No scleral icterus. No injection or drainage. ENT: No nasal bleeding or discharge. Mucous membranes pink and moist. Tongue is midline, no uvula deviation. NECK: Trachea midline. No JVD. CARDIOVASCULAR: Regular rate and rhythm. no murmurs, S3, S4. RESPIRATORY: No accessory muscle use. Clear to auscultation. Breath sounds equal bilaterally. GASTROINTESTINAL: Abdomen soft, tender to tough on the epigastric area, has healing surgical scars to the abdomen with no obvious purulence or induration, nondistended. Hepatic and splenic margins not palpable. MUSCULOSKELETAL: Extremities without clubbing, cyanosis, or edema. No obvious deformities. full ROM of the upper and lower extremities bilaterally. 2+ pulses bilaterally. NEUROLOGICAL: Awake and alert. No obvious cranial nerve deficits. Motor grossly within normal limits. Five out of 5 muscle strength in the arms and legs. Normal speech. PSYCHIATRIC: Appropriate mood and affect; insight and judgment normal. Data Data Last Documented VS Vital Signs Date Time Temp Pulse Resp B/P (MAP) Pulse Ox O2 Delivery O2 Flow Rate FiO2 02/24/17 18:53 02/24/17 17:00 62 16 97 Room Air 02/24/17 14:10 99.1 Orders Orders Ondansetron Inj (Zofran Inj) (02/24/17 14:30) Complete Blood Count With Diff (02/24/17 15:01) Comprehensive Metabolic Panel (02/24/17 15:01) Lipase (02/24/17 15:01) Lactic Acid (02/24/17 15:01) Prothrombin Time / Inr (Pt) (02/24/17 15:01) Act Partial Throm Time (Ptt) (02/24/17 15:01) Iv Access Insert/Monitor (02/24/17 15:01) Ecg Monitoring (02/24/17 15:01) Oximetry (02/24/17 15:01) Morphine Inj (Morphine Inj) (02/24/17 15:15) Ondansetron Inj (Zofran Inj) (02/24/17 15:15) Sodium Chloride 0.9% Flush (Ns Flush) (02/24/17 15:15) Ct Abd/Pel W Iv Contrast(Rout) (02/24/17 ) Morphine Inj (Morphine Inj) (02/24/17 15:30) Bhcg Screen Qualitative (02/24/17 15:21) Gastrografin Gi Series (02/24/17 ) Diatrizoate Liq ( Gastroview Liq) (02/24/17 16:38) Iohexol 350 Inj (Omnipaque 350 Inj) (02/24/17 16:50) Morphine Inj (Morphine Inj) (02/24/17 17:00) Sodium Chlor 0.9% 1000 Ml Inj (Ns 1000 M (02/24/17 17:15) Promethazine Inj (Phenergan Inj) (02/24/17 17:30) Ed Discharge Order (02/24/17 18:13) Labs Laboratory Tests Test 02/24/17 15:13 White Blood Count 9.6 TH/MM3 Red Blood Count 4.25 MIL/MM3 Hemoglobin 12.3 GM/DL Hematocrit 36.4 % Mean Corpuscular Volume 85.7 FL Mean Corpuscular Hemoglobin 29.0 PG Mean Corpuscular Hemoglobin Concent 33.8 % Red Cell Distribution Width 14.9 % Platelet Count 355 TH/MM3 Mean Platelet Volume 8.1 FL Neutrophils (%) (Auto) 90.1 % Lymphocytes (%) (Auto) 8.1 % Monocytes (%) (Auto) 1.5 % Eosinophils (%) (Auto) 0.0 % Basophils (%) (Auto) 0.3 % Neutrophils # (Auto) 8.7 TH/MM3 Lymphocytes # (Auto) 0.8 TH/MM3 Monocytes # (Auto) 0.1 TH/MM3 Eosinophils # (Auto) 0.0 TH/MM3 Basophils # (Auto) 0.0 TH/MM3 CBC Comment DIFF FINAL Differential Comment Prothrombin Time 11.1 SEC Prothromb Time International Ratio 1.1 RATIO Activated Partial Thromboplast Time 25.9 SEC Blood Urea Nitrogen 9 MG/DL Creatinine 0.51 MG/DL Random Glucose 106 MG/DL Total Protein 7.4 GM/DL Albumin 3.4 GM/DL Calcium Level 8.6 MG/DL Alkaline Phosphatase 106 U/L Aspartate Amino Transf (AST/SGOT) 18 U/L Alanine Aminotransferase (ALT/SGPT) 42 U/L Total Bilirubin 0.3 MG/DL Sodium Level 138 MEQ/L Potassium Level 3.7 MEQ/L Chloride Level 104 MEQ/L Carbon Dioxide Level 20.6 MEQ/L Anion Gap 13 MEQ/L Estimat Glomerular Filtration Rate 137 ML/MIN Lactic Acid Level 1.3 mmol/L Lipase 80 U/L Beta HCG, Qualitative LESS THAN 1 MIU/ML MDM Medical Decision Making Medical Screen Exam Complete: Yes Emergency Medical Condition: Yes Medical Record Reviewed: Yes Interpretation(s) CBC & BMP Diagram 02/24/17 15:13 Total Protein 7.4, Albumin 3.4, Calcium Level 8.6, Alkaline Phosphatase 106, Aspartate Amino Transf (AST/SGOT) 18, Alanine Aminotransferase (ALT/SGPT) 42, Total Bilirubin 0.3 Last Impressions Upper GI Series 02/24/17 0000 Signed Impressions: Service Date/Time: Friday, February 24, 2017 16:06 - CONCLUSION: Minimal edema at the anastomosis that does not impede the flow of Gastrografin into the enteric limb. Justin Gilbert MD FACR Abdomen/Pelvis CT 02/24/17 0000 Signed Impressions: Service Date/Time: Friday, February 24, 2017 16:38 - CONCLUSION: 4.5 CM left adnexal mass otherwise negative There is no extravasation There is no abscess There is no free air Echogenic rim is completely opacified. to the colon without obstruction. Biliary limb is not opacified. Justin Gilbert MD FACR lipase WNL Differential Diagnosis Obstruction versus infection versus postsurgical disease Narrative Course 37-year-old female that presents to the ED for ablation of abdominal pain after surgery. Patient was properly examined and was found to have abdominal pain. Labs and imaging were ordered. Patient was given pain medications IV as well as antiemetics and fluids. Case was discussed with the patient's surgeon Dr. Taylor who recommends we do upper GI series with contrast as well as CT. This was ordered. Patient agreed to proceed. Imaging was essentially unremarkable. This was discussed with Dr. Taylor who stated that if patient is able to tolerate fluids she can go home. He recommends that the patient states to fluids for now. Patient was told this and agrees with plan. Patient was given Phenergan with good results. Patient feels improved. Pain improved. Patient was offered prescription for hydrocodone syrup as well as Zofran sublingual but per patient shortly has this at home and she will refer to take this at home. She was told that if anything worsens she is to come back to the ED per she agrees and understands this. Diagnosis Primary Impression: Nausea & vomiting Qualified Codes: R11.2 - Nausea with vomiting, unspecified Additional Impression: Abdominal pain Qualified Codes: R10.13 - Epigastric pain Patient Instructions: General Instructions, Narcotic given in the ED Additional Instructions: Take medications prescribed by your doctor. Follow with Dr. Taylor next week. See ED for any worsening symptoms. Med/Other Pt SpecificInfo: No Change to Meds Disposition: 01 DISCHARGE HOME Condition: Stable Mark Maldonado Feb 24, 2017 16:46
[2017-02-24] MEDS ORDERED: IOHEXOL 350 MG/ML 10 ML VIAL (for RAD DIAG) IVCONTRAST ONE (16:50)
[2017-02-24 17:00] VITALS: BP 113/56; PULSE 62; RESP 16; O2SAT 97
--- NOTE | 2017-02-24 17:01 | RADRPT ---
EXAM DATE/TIME: 02/24/2017 16:38 [facility] COMPARISON: No previous studies available for comparison. INDICATIONS : Post op 1 week, epigastric pain, nausea. IV CONTRAST: 100 cc Omnipaque 350 (iohexol) IV ORAL CONTRAST: No oral contrast ingested. RADIATION DOSE: 16.85 CTDIvol (mGy) ; Patient body habitus MEDICAL HISTORY : Hypertension. SURGICAL HISTORY : Hysterectomy. Cholecystectomy.Duodenal switch. ENCOUNTER: Initial ACUITY: 1 day PAIN SCALE: 8/10 LOCATION: Bilateral upper quadrant TECHNIQUE: Volumetric scanning of the abdomen and pelvis was performed. Using automated exposure control and ad justment of the mA and/or kV according to patient size, radiation dose was kept as low as reasonably achievable to obtain optimal diagnostic quality images. DICOM format image data is available electro nically for review and comparison. FINDINGS: Lung base is clear. Liver, spleen and pancreas are unremarkable Adrenals and kidneys appear normal There is no ascites or adenopathy 4.5 cm right adnexal mass is noted. Left adnexa is unremarkable. Bladder is unremarkable Abdominal villarreal intact There is no pelvic fluid or adenopathy Review of bone windows reveals only degenerative changes in the lower lumbar spine. CONCLUSION: 4.5 CM left adnexal mass otherwise negative There is no extravasation There is no abscess There is no free air Echogenic rim is completely opacified. to the colon without obstruction. Biliary limb is not opacif ied. Justin Gilbert MD FACR on February 24, 2017 at 16:52 Board Certified Radiologist. This report was verified electronically.
[2017-02-24] MEDS ORDERED: SODIUM CHLOR 0.9% 1000 ML INJ 1,000 ML IV ONE (17:15)
[2017-02-24] MEDS ORDERED: PROMETHAZINE INJ 25 MG/ML VIAL IM ONE (17:30)
== END 2017-02-24 18:55 | disposition home or self-care (01) ==
LOC: NEPC 14:09
DX: R11.2 Nausea with vomiting, unspecified (principal); R10.13 Epigastric pain
CPT/HCPCS: 74177; 74240; 80053; 83605; 83690; 84703; 85025; 85610; 85730; 96372; 96374; 96375; 96376; 99285; J2270; J2405; J2550; J7030; Q9963; Q9967

== ENCOUNTER 2017-03-26 12:55 | Observation (INO) | payer OTHER ==
[~2017-03-26] VITALS: Ht 157.5 cm; Wt 112.0 kg
[~2017-03-26 12:55] MED LIST changes: -ECHI1CAP PO; -HYDR25TA5 PO; -LISI-519 PO; -ONETAB13 PO; +PROM1SUP7 RECTAL; +PROT40TA PO; -VIST25CA PO
[2017-03-26 13:12] VITALS: BP 157/85; PULSE 84; RESP 18; TEMP 98.2; O2SAT 99
[2017-03-26] MEDS ORDERED: ONDANSETRON HCL 4 MG/2 ML VIAL IV PUSH ONE (13:30)
[2017-03-26] MEDS ORDERED: SODIUM CHLOR 0.9% 1000 ML INJ 1,000 ML IV ONE (13:30)
[2017-03-26 13:34] VITALS: BP 150/81; PULSE 68; RESP 18; O2SAT 100
[2017-03-26] MEDS ORDERED: MORPHINE SULFATE 2 MG/ML INJ IV PUSH ONE ×2 (14:00→17:45)
[2017-03-26 14:07] LABS: AUTOMATED NEUTROPHIL # 9.3 TH/MM3 (1.8-7.7); BASOPHIL % 0.3 % (0.0-2.0); HEMOGLOBIN 13.6 GM/DL (11.6-15.3); LYMPH % 15.3 % (9.0-44.0); LYMPHOCYTE # 1.8 TH/MM3 (1.0-4.8); MEAN CELL VOLUME 85.5 FL (80.0-100.0); MEAN CORPUSCULAR HEMOGLOBIN 29.8 PG (27.0-34.0); MEAN CORPUSCULAR HGB CONC 34.9 % (32.0-36.0); MEAN PLATELET VOLUME 9.5 FL (7.0-11.0); MONO % 4.3 % (0.0-8.0); MONOCYTE # 0.5 TH/MM3 (0-0.9); NEUT % 80.1 % (16.0-70.0); PLATELET COUNT 276 TH/MM3 (150-450); RED BLOOD COUNT 4.56 MIL/MM3 (4.00-5.30); RED CELL DISTRIBUTION WIDTH 16.2 % (11.6-17.2); WHITE BLOOD COUNT 11.6 TH/MM3 (4.0-11.0)
[2017-03-26] MEDS ORDERED: PROMETHAZINE INJ 25 MG/ML VIAL IM ONE (14:15)
[2017-03-26 14:20] LABS: ALT (GPT) 92 U/L (10-53); AST (GOT) 50 U/L (15-37); BICARBONATE 25.7 MEQ/L (21.0-32.0); BLOOD UREA NITROGEN 15 MG/DL (7-18); CALCIUM 8.7 MG/DL (8.5-10.1); CHLORIDE 103 MEQ/L (98-107); CREATININE 0.75 MG/DL (0.50-1.00); GLOMERULAR FILTRATION RATE 88 ML/MIN (>89); GLUCOSE,RANDOM 94 MG/DL (74-106); SODIUM (NA) 140 MEQ/L (136-145)
[2017-03-26 14:22] LABS: ALKALINE PHOSPHATASE 104 U/L (45-117); TOTAL BILIRUBIN ADULT 0.5 MG/DL (0.2-1.0); TOTAL PROTEIN 7.7 GM/DL (6.4-8.2)
--- NOTE | 2017-03-26 17:05 | PD ---
HPI Chief Complaint: Abdominal Pain Time Seen by Provider: 13:19 Travel History International Travel<30 days: No Contact w/Intl Traveler<30days: No Traveled to known affect area: No History of Present Illness HPI This is a 37-year-old female who presents to the emergency department having had a laparoscopic duodenal switch done on February 15 who presents to the emergency department with abdominal pain and vomiting. She says that 3 days ago she golfed some water and ever since then she has had severe epigastric abdominal pain, nonradiating, constant associated with vomiting and dry heaving. She has been able to keep anything down. She was seen in the [facility] emergency department where she had a CT scan and labs performed all of which were reassuring. She says she has not felt better since then. She follows with Dr. Taylor. [facility] Past Medical History Cancer: No Cardiovascular Problems: No Diabetes: No Diminished Hearing: No Endocrine: No Gastrointestinal Disorders: Yes ( OBESITY) Genitourinary: No Hepatitis: No Hiatal Hernia: No Hypertension: Yes Immune Disorder: Yes (RA) Musculoskeletal: Yes (RA) Neurologic: No Psychiatric: Yes (DEPRESSION, ANXIETY) Reproductive: No Respiratory: Yes ( SLEEP APNEA WITH CPAP) Thyroid Disease: No ?: Not : 2 Para: 2 Past Surgical History Abdominal Surgery: Yes (DUODENAL SWITCH feb 15 2017) AICD: No Cholecystectomy: Yes Ear Surgery: No Endocrine Surgery: No Eye Surgery: No Genitourinary Surgery: No Gynecologic Surgery: Yes (hysterectomy) Hysterectomy: Yes (2017) Joint Replacement: No Neurologic Surgery: No Oral Surgery: Yes (TUBES IN EARS CHILD) Pacemaker: No Thoracic Surgery: No Other Surgery: Yes Social History Alcohol Use: Yes (on occasion) Tobacco Use: No Substance Use: Yes (THC on occcasion) Allergies-Medications (Allergen,Severity, Reaction): Coded Allergies: adhesive tape (Verified Allergy, Unknown, TERRIBLE RASH, 03/23/17) PAPER TAPE OK, STERI STRIPS OK Reported Meds & Prescriptions Reported Meds & Active Scripts Active Phenergan Supp (Promethazine HCl) 25 Mg Supp 25 Mg RECTAL Q6H PRN Reported Protonix (Pantoprazole Sodium) 40 Mg Tab 40 Mg PO DAILY Effexor XR 24 HR (Venlafaxine HCl) 37.5 Mg Cap 37.5 Mg PO DAILY Review of Systems Except as stated in HPI: all other systems reviewed are Neg Physical Exam Narrative GENERAL: Uncomfortable appearing, dry heaving SKIN: Focused skin assessment warm and dry. HEAD: Atraumatic. Normocephalic. EYES: Pupils equal and round. No injection or drainage. ENT: Moist mucous membranes NECK: Trachea midline. CARDIOVASCULAR: Regular rate and rhythm. No murmur appreciated. RESPIRATORY: Clear to auscultation. Breath sounds equal bilaterally. GASTROINTESTINAL: Abdomen soft, tender to palpation in the upper abdomen diffusely with some guarding in the epigastrium. MUSCULOSKELETAL: No obvious deformities. NEUROLOGICAL: Awake and alert. No obvious cranial nerve deficits. Moving all extremities. PSYCHIATRIC: Appropriate mood and affect; insight and judgment normal. Data Data Last Documented VS Vital Signs Date Time Temp Pulse Resp B/P (MAP) Pulse Ox O2 Delivery O2 Flow Rate FiO2 03/26/17 13:35 18 03/26/17 13:34 68 150/81 (104) 100 Room Air 03/26/17 13:12 98.2 Orders Orders Complete Blood Count With Diff (03/26/17 13:28) Comprehensive Metabolic Panel (03/26/17 13:28) Lipase (03/26/17 13:28) Ondansetron Inj (Zofran Inj) (03/26/17 13:30) Sodium Chlor 0.9% 1000 Ml Inj (Ns 1000 M (03/26/17 13:30) Morphine Inj (Morphine Inj) (03/26/17 14:00) Promethazine Inj (Phenergan Inj) (03/26/17 14:15) Upper Gi Series With Kub Lead Game Designer (03/26/17 ) Labs Laboratory Tests Test 03/26/17 13:39 White Blood Count 11.6 TH/MM3 Red Blood Count 4.56 MIL/MM3 Hemoglobin 13.6 GM/DL Hematocrit 39.0 % Mean Corpuscular Volume 85.5 FL Mean Corpuscular Hemoglobin 29.8 PG Mean Corpuscular Hemoglobin Concent 34.9 % Red Cell Distribution Width 16.2 % Platelet Count 276 TH/MM3 Mean Platelet Volume 9.5 FL Neutrophils (%) (Auto) 80.1 % Lymphocytes (%) (Auto) 15.3 % Monocytes (%) (Auto) 4.3 % Eosinophils (%) (Auto) 0.0 % Basophils (%) (Auto) 0.3 % Neutrophils # (Auto) 9.3 TH/MM3 Lymphocytes # (Auto) 1.8 TH/MM3 Monocytes # (Auto) 0.5 TH/MM3 Eosinophils # (Auto) 0.0 TH/MM3 Basophils # (Auto) 0.0 TH/MM3 CBC Comment DIFF FINAL Differential Comment Blood Urea Nitrogen 15 MG/DL Creatinine 0.75 MG/DL Random Glucose 94 MG/DL Total Protein 7.7 GM/DL Albumin 4.0 GM/DL Calcium Level 8.7 MG/DL Alkaline Phosphatase 104 U/L Aspartate Amino Transf (AST/SGOT) 50 U/L Alanine Aminotransferase (ALT/SGPT) 92 U/L Total Bilirubin 0.5 MG/DL Sodium Level 140 MEQ/L Potassium Level 3.4 MEQ/L Chloride Level 103 MEQ/L Carbon Dioxide Level 25.7 MEQ/L Anion Gap 11 MEQ/L Estimat Glomerular Filtration Rate 88 ML/MIN Lipase 71 U/L MDM Medical Decision Making Medical Screen Exam Complete: Yes Emergency Medical Condition: Yes Interpretation(s) Afebrile, no tachycardia, hypertensive Mild leukocytosis Mild transaminitis Differential Diagnosis Gastric obstruction, hernia, ulcer, gastritis, pancreatitis Narrative Course This is a 37-year-old female who presents to the emergency department with abdominal pain and vomiting in the setting of bariatric surgery in January. She appears uncomfortable on exam. Labs are obtained which are reassuring. She was given IV antiemetics and pain control. I spoke to Dr. shields team who requested an upper GI study. Patient will be evaluated by Dr. Antonio who is oncoming and results of upper GI series will be discussed with Dr. Taylor to determine disposition. Shannan Villarreal MD Mar 26, 2017 17:05
--- NOTE | 2017-03-26 17:51 | RADRPT ---
EXAM DATE/TIME: 03/26/2017 16:43 [facility] COMPARISON: CT ABDOMEN & PELVIS W/O CONTRAST, March 23, 2017, 11:01. GASTROGRAFIN GI SERIES, February 17 7, 9:44. GASTROGRAFIN GI SERIES, February 24, 2017, 16:06. INDICATIONS : Nausea and vomiting with diffuse abdomen pain. FLUORO TIME: 0.1 minutes IMAGE COUNT: 10 CONTRAST: 1. Liquid E-Z Paque Barium Sulfate (60% w/v, 41% w.w) MEDICAL HISTORY : None. SURGICAL HISTORY : Cholecystectomy. Hysterectomy.Duodenal switch 02/15/17 ENCOUNTER: Initial ACUITY: 4 - 6 days PAIN SCORE: 10/10 LOCATION: Upper abdomen. FINDINGS: Single-contrast barium upper GI examination was performed. The esophagus appears intact. Patient is s tatus post gastric sleeve procedure and contrast passes freely through the stomach into the small bow el without any evidence of stricture or leakage. CONCLUSION: Intact postsurgical changes without any strictures, obstruction or leak. Zafar Galvan MD on March 26, 2017 at 17:44 Board Certified Radiologist. This report was verified electronically.
[2017-03-26 17:57] VITALS: BP 118/74; PULSE 84; RESP 18; O2SAT 98
--- NOTE | 2017-03-26 18:25 | PD ---
Physical Exam Narrative Patient was seen by ED physician and signed out to me. Data Data Last Documented VS Vital Signs Date Time Temp Pulse Resp B/P (MAP) Pulse Ox O2 Delivery O2 Flow Rate FiO2 03/26/17 17:57 84 18 118/74 (89) 98 Room Air 03/26/17 13:12 98.2 Orders Orders Complete Blood Count With Diff (03/26/17 13:28) Comprehensive Metabolic Panel (03/26/17 13:28) Lipase (03/26/17 13:28) Ondansetron Inj (Zofran Inj) (03/26/17 13:30) Sodium Chlor 0.9% 1000 Ml Inj (Ns 1000 M (03/26/17 13:30) Morphine Inj (Morphine Inj) (03/26/17 14:00) Promethazine Inj (Phenergan Inj) (03/26/17 14:15) Upper Gi Series With Kub Commercial Attorney (03/26/17 ) Morphine Inj (Morphine Inj) (03/26/17 17:45) Ns + Kcl 20 Meq Inj (Ns + Kcl 20 Meq Inj (03/26/17 18:30) Consult General Surgery (03/26/17 ) Metoclopramide Inj (Reglan Inj) (03/26/17 18:45) Diphenhydramine Inj (Benadryl Inj) (03/26/17 18:45) (Hub Use Only)Inp Phy Cons/Ref (03/26/17 ) Labs Laboratory Tests Test 03/26/17 13:39 White Blood Count 11.6 TH/MM3 Red Blood Count 4.56 MIL/MM3 Hemoglobin 13.6 GM/DL Hematocrit 39.0 % Mean Corpuscular Volume 85.5 FL Mean Corpuscular Hemoglobin 29.8 PG Mean Corpuscular Hemoglobin Concent 34.9 % Red Cell Distribution Width 16.2 % Platelet Count 276 TH/MM3 Mean Platelet Volume 9.5 FL Neutrophils (%) (Auto) 80.1 % Lymphocytes (%) (Auto) 15.3 % Monocytes (%) (Auto) 4.3 % Eosinophils (%) (Auto) 0.0 % Basophils (%) (Auto) 0.3 % Neutrophils # (Auto) 9.3 TH/MM3 Lymphocytes # (Auto) 1.8 TH/MM3 Monocytes # (Auto) 0.5 TH/MM3 Eosinophils # (Auto) 0.0 TH/MM3 Basophils # (Auto) 0.0 TH/MM3 CBC Comment DIFF FINAL Differential Comment Blood Urea Nitrogen 15 MG/DL Creatinine 0.75 MG/DL Random Glucose 94 MG/DL Total Protein 7.7 GM/DL Albumin 4.0 GM/DL Calcium Level 8.7 MG/DL Alkaline Phosphatase 104 U/L Aspartate Amino Transf (AST/SGOT) 50 U/L Alanine Aminotransferase (ALT/SGPT) 92 U/L Total Bilirubin 0.5 MG/DL Sodium Level 140 MEQ/L Potassium Level 3.4 MEQ/L Chloride Level 103 MEQ/L Carbon Dioxide Level 25.7 MEQ/L Anion Gap 11 MEQ/L Estimat Glomerular Filtration Rate 88 ML/MIN Lipase 71 U/L MDM Supervised Visit with TORIE: No Interpretation(s) Last Impressions Upper GI Series 03/26/17 0000 Signed Impressions: Service Date/Time: Sunday, March 26, 2017 16:43 - CONCLUSION: Intact postsurgical changes without any strictures, obstruction or leak. Zafar Galvan MD 1809 p.m. CBC WBC 11.6. 80 neutrophil. Potassium 3.4. AST 50. ALT 92. Narrative Course Patient was seen by Dr. Villarreal. Dr. Flaherty was consulted. Advised upper GI series. Upper GI series was normal. I discussed with Dr. Flaherty about the results of blood tests and upper GI series. Patient does not want to go home. Dr. Flaherty advised observation to medical service and he will see patient in a.m. Diagnosis Primary Impression: Abdominal pain Qualified Codes: R10.10 - Upper abdominal pain, unspecified Additional Impression: Nausea & vomiting Qualified Codes: R11.2 - Nausea with vomiting, unspecified Admitting Information Admitting Physician Requests: Observation Margarito Antonio MD Mar 26, 2017 18:25
[2017-03-26] MEDS ORDERED: NS + KCL 20 MEQ INJ 1,000 ML IV SCH (18:30)
[2017-03-26] MEDS ORDERED: METOCLOPRAMIDE HCL 10 MG/2 ML VIAL IV PUSH ONE (18:45)
[2017-03-26] MEDS ORDERED: diphenhydrAMINE HCL 50 MG/ML VIAL IV PUSH ONE (18:45)
[2017-03-26] MEDS ORDERED: ONDANSETRON HCL 4 MG/2 ML VIAL IV PUSH PRN (19:00)
[2017-03-26] MEDS ORDERED: SODIUM CHLORIDE 0.9% FLUSH 10 ML FLUSH IV FLUSH PRN ×2 (19:00→19:15)
[2017-03-26] MEDS ORDERED: TEMAZEPAM 15 MG CAP PO PRN (19:15)
[2017-03-26] MEDS ORDERED: ACETAMINOPHEN 325 MG TAB PO PRN (19:15)
[2017-03-26] MEDS ORDERED: MAGNESIUM HYDROXIDE SUSP 30 ML CUP PO PRN (19:15)
[2017-03-26] MEDS ORDERED: NALOXONE HCL 0.4 MG/ML AMP IV PUSH PRN (19:15)
[2017-03-26] MEDS ORDERED: PROMETHAZINE HCL 25 MG SUPP RECTAL PRN (19:15)
[2017-03-26] MEDS ORDERED: ONDANSETRON HCL 4 MG/2 ML VIAL IVP PRN (19:15)
--- NOTE | 2017-03-26 19:29 | RADRPT ---
EXAM DATE/TIME: 03/26/2017 19:17 [facility] COMPARISON: CHEST SINGLE AP, March 23, 2017, 11:03. INDICATIONS : Cough. MEDICAL HISTORY : None. SURGICAL HISTORY : None. ENCOUNTER: Initial ACUITY: 1 day PAIN SCORE: 0/10 LOCATION: Bilateral chest FINDINGS: The lungs are clear without infiltrate, nodule, or mass. There is no appreciable pleural effusion fo r technique. Heart and mediastinum are unremarkable. CONCLUSION: No acute cardiopulmonary disease. Zafar Galvan MD on March 26, 2017 at 19:27 Board Certified Radiologist. This report was verified electronically.
[2017-03-26] MEDS: SODIUM CHLORIDE 0.9% FLUSH 10 ML FLUSH IV FLUSH SCH (21:00)
[2017-03-26] MEDS ORDERED: SODIUM CHLORIDE 0.9% FLUSH 10 ML FLUSH IV FLUSH SCH (21:00)
[2017-03-26 21:03] VITALS: BP 111/62; PULSE 60; RESP 20; TEMP 99.4; O2SAT 99
[2017-03-26] MEDS: D5-1/2 NS + KCL 20 MEQ INJ 1,000 ML IV SCH (22:53)
[2017-03-26] MEDS: METOCLOPRAMIDE HCL 10 MG/2 ML VIAL IV PUSH SCH (22:54)
[2017-03-26] MEDS: MORPHINE SULFATE 4 MG/ML INJ IV PUSH PRN (22:55)
[2017-03-26] MEDS ORDERED: CALCIUM CARBONATE 500 MG CHEWABLE TAB PO PRN (23:15)
[2017-03-26 23:42] VITALS: BP 124/60; PULSE 69; RESP 18; TEMP 98.1; O2SAT 96
[2017-03-27] MEDS: D5-1/2 NS + KCL 20 MEQ INJ 1,000 ML IV SCH ×2 (04:00→12:48)
[2017-03-27 04:03] VITALS: BP 95/54; PULSE 56; RESP 16; TEMP 98.7; O2SAT 100
[2017-03-27 04:36] LABS: AUTOMATED NEUTROPHIL # 4.8 TH/MM3 (1.8-7.7); BASOPHIL # 0.1 TH/MM3 (0-0.2); BASOPHIL % 0.6 % (0.0-2.0); EOSINOPHIL % 0.3 % (0.0-4.0); HEMATOCRIT 36.9 % (35.0-46.0); HEMOGLOBIN 12.5 GM/DL (11.6-15.3); LYMPH % 37.3 % (9.0-44.0); LYMPHOCYTE # 3.3 TH/MM3 (1.0-4.8); MEAN CELL VOLUME 86.3 FL (80.0-100.0); MEAN CORPUSCULAR HEMOGLOBIN 29.2 PG (27.0-34.0); MEAN CORPUSCULAR HGB CONC 33.8 % (32.0-36.0); MEAN PLATELET VOLUME 9.5 FL (7.0-11.0); MONO % 7.2 % (0.0-8.0); MONOCYTE # 0.6 TH/MM3 (0-0.9); NEUT % 54.6 % (16.0-70.0); PLATELET COUNT 204 TH/MM3 (150-450); RED BLOOD COUNT 4.27 MIL/MM3 (4.00-5.30); RED CELL DISTRIBUTION WIDTH 16.3 % (11.6-17.2); WHITE BLOOD COUNT 8.8 TH/MM3 (4.0-11.0)
[2017-03-27] MEDS: METOCLOPRAMIDE HCL 10 MG/2 ML VIAL IV PUSH SCH ×2 (04:37→13:07)
[2017-03-27 05:00] LABS: ALBUMIN 3.3 GM/DL (3.4-5.0); ALKALINE PHOSPHATASE 86 U/L (45-117); ALT (GPT) 87 U/L (10-53); AST (GOT) 41 U/L (15-37); BICARBONATE 27.5 MEQ/L (21.0-32.0); BLOOD UREA NITROGEN 9 MG/DL (7-18); CALCIUM 7.9 MG/DL (8.5-10.1); CHLORIDE 106 MEQ/L (98-107); CREATININE 0.72 MG/DL (0.50-1.00); GLOMERULAR FILTRATION RATE 92 ML/MIN (>89); GLUCOSE,RANDOM 85 MG/DL (74-106); SODIUM (NA) 142 MEQ/L (136-145); TOTAL BILIRUBIN ADULT 0.5 MG/DL (0.2-1.0); TOTAL PROTEIN 6.4 GM/DL (6.4-8.2)
[2017-03-27] MEDS ORDERED: POTASSIUM CHLORIDE 25 MEQ EFFERVESCENT TAB PO ONE ×2 (06:00→07:30)
--- NOTE | 2017-03-27 07:51 | HHI.HP ---
HPI Service [facility] Hospitalists Primary Care Physician Non-Staff Admission Diagnosis abdominal pain. Persistent nausea vomiting. Chief Complaint: N/V abd pain Travel History International Travel<30 Days: No Contact w/Intl Traveler <30 Da: No Traveled to Known Affected Are: No History of Present Illness This is a 37-year-old female with a past medical history which includes HTN, Osteoarthritis, depression and morbid obesity. Patient is S/P laparoscopic duodenal switch done on February 15 who presented to the emergency department with abdominal pain and vomiting. She says that 3-4 days ago she gulped some water and ever since then she has had severe constant nonradiating epigastric abdominal pain associated with vomiting and dry heaving. She has not been able to keep anything down. She was seen in the [place] emergency department 03/23/17 and had a abdomen/pelvic CT scan and labs performed all of which were reassuring. She says she has not felt better since then. Patient denies SOB, chest pain, fevers or chills. This AM patient reports the abd pain has improved greatly she only has a mild, "twinge," located in the midepigastric area. Patient report no N/V since last night. Patient is now tolerating clear liquids. Review of Systems Constitutional: DENIES: Fever, Chills Respiratory: DENIES: Cough, Shortness of breath Cardiovascular: DENIES: Chest pain Gastrointestinal: COMPLAINS OF: Abdominal pain, Nausea, Vomiting Past Family Social History Past Medical History HTN, Osteoarthritis, depression and morbid obesity, OCD Past Surgical History Cholecystectomy, D&C, Eustachian tube surgery and laparoscopic duodenal switch done on February 15 Dr. Flaherty Reported Medications Phenergan Supp (Promethazine HCl) 25 Mg Supp 25 Mg RECTAL Q6H PRN Protonix (Pantoprazole Sodium) 40 Mg Tab 40 Mg PO DAILY Effexor XR 24 HR (Venlafaxine HCl) 37.5 Mg Cap 37.5 Mg PO DAILY Allergies: Coded Allergies: adhesive tape (Verified Allergy, Unknown, TERRIBLE RASH, 03/23/17) PAPER TAPE OK, STERI STRIPS OK Family History Family history of HTN Social History Former tobacco use, denies current use Former drug abuse, denies current use Physical Exam Vital Signs Vital Signs Date Time Temp Pulse Resp B/P (MAP) Pulse Ox O2 Delivery O2 Flow Rate FiO2 03/27/17 04:03 98.7 56 16 95/54 (68) 100 03/26/17 23:42 98.1 69 18 124/60 (81) 96 03/26/17 23:21 18 03/26/17 21:03 99.4 60 20 111/62 (78) 99 03/26/17 17:57 84 18 118/74 (89) 98 Room Air 03/26/17 13:35 18 03/26/17 13:34 68 18 150/81 (104) 100 Room Air 03/26/17 13:12 98.2 84 18 157/85 (109) 99 Physical Exam GENERAL: This is a well-nourished, well-developed patient, in no apparent distress. SKIN: No rashes, ecchymoses or lesions. Cool and dry. HEAD: Atraumatic. Normocephalic. No temporal or scalp tenderness. EYES: Pupils equal round and reactive. Extraocular motions intact. No scleral icterus. No injection or drainage. ENT: Nose without bleeding, purulent drainage or septal hematoma. Throat without erythema, tonsillar hypertrophy or exudate. Uvula midline. Airway patent. NECK: Trachea midline. No JVD or lymphadenopathy. Supple, nontender, no meningeal signs. CARDIOVASCULAR: Regular rate and rhythm without murmurs, gallops, or rubs. RESPIRATORY: Clear to auscultation. Breath sounds equal bilaterally. No wheezes , rales, or rhonchi. GASTROINTESTINAL: Abdomen soft, non-tender, nondistended. No hepato-splenomegaly , or palpable masses. No guarding. MUSCULOSKELETAL: Extremities without clubbing, cyanosis, or edema. No joint tenderness, effusion, or edema noted. No calf tenderness. Negative Homans sign bilaterally. NEUROLOGICAL: Awake and alert. Cranial nerves II through XII intact. Motor and sensory grossly within normal limits. Five out of 5 muscle strength in all muscle groups. Normal speech. Laboratory Laboratory Tests Test 03/26/17 13:39 03/27/17 03:54 White Blood Count 11.6 8.8 Red Blood Count 4.56 4.27 Hemoglobin 13.6 12.5 Hematocrit 39.0 36.9 Mean Corpuscular Volume 85.5 86.3 Mean Corpuscular Hemoglobin 29.8 29.2 Mean Corpuscular Hemoglobin Concent 34.9 33.8 Red Cell Distribution Width 16.2 16.3 Platelet Count 276 204 Mean Platelet Volume 9.5 9.5 Neutrophils (%) (Auto) 80.1 54.6 Lymphocytes (%) (Auto) 15.3 37.3 Monocytes (%) (Auto) 4.3 7.2 Eosinophils (%) (Auto) 0.0 0.3 Basophils (%) (Auto) 0.3 0.6 Neutrophils # (Auto) 9.3 4.8 Lymphocytes # (Auto) 1.8 3.3 Monocytes # (Auto) 0.5 0.6 Eosinophils # (Auto) 0.0 0.0 Basophils # (Auto) 0.0 0.1 CBC Comment DIFF FINAL DIFF FINAL Differential Comment Blood Urea Nitrogen 15 9 Creatinine 0.75 0.72 Random Glucose 94 85 Total Protein 7.7 6.4 Albumin 4.0 3.3 Calcium Level 8.7 7.9 Alkaline Phosphatase 104 86 Aspartate Amino Transf (AST/SGOT) 50 41 Alanine Aminotransferase (ALT/SGPT) 92 87 Total Bilirubin 0.5 0.5 Sodium Level 140 142 Potassium Level 3.4 2.8 Chloride Level 103 106 Carbon Dioxide Level 25.7 27.5 Anion Gap 11 9 Estimat Glomerular Filtration Rate 88 92 Lipase 71 Human Chorionic Gonadotropin, Quant LESS THAN 1 Result Diagram: 03/27/17 0354 03/27/17 0354 Imaging Last Impressions Chest X-Ray 03/26/17 1904 Signed Impressions: Service Date/Time: Sunday, March 26, 2017 19:17 - CONCLUSION: No acute cardiopulmonary disease. Zafar Galvan MD Upper GI Series 03/26/17 0000 Signed Impressions: Service Date/Time: Sunday, March 26, 2017 16:43 - CONCLUSION: Intact postsurgical changes without any strictures, obstruction or leak. Zafar Galvan MD Caprini VTE Risk Assessment Caprini VTE Risk Assessment: No/Low Risk (score <= 1) Caprini Risk Assessment Model Point Value = 1 Point Value = 2 Point Value = 3 Point Value = 5 Age 41-60 Minor surgery BMI > 25 kg/m2 Swollen legs Varicose veins or History of unexplained or recurrent spontaneous Oral contraceptives or hormone replacement Sepsis (< 1 month) Serious lung disease, including pneumonia (< 1 month) Abnormal pulmonary function Acute myocardial infarction Congestive heart failure (< 1 month) History of inflammatory bowel disease Medical patient at bed rest Age 61-74 Arthroscopic surgery Major open surgery (> 45 min) Laparoscopic surgery (> 45 min) Malignancy Confined to bed (> 72 hours) Immobilizing plaster cast Central venous access Age >= 75 History of VTE Family history of VTE Factor V Leiden Prothrombin [id number] Lupus anticoagulant Anticardiolipin antibodies Elevated serum homocysteine Heparin-induced thrombocytopenia Other congenital or acquired thrombophilia Stroke (< 1 month) Elective arthroplasty Hip, pelvis, or leg fracture Acute spinal cord injury (< 1 month) Prophylaxis Regimen Total Risk Factor Score Risk Level Prophylaxis Regimen 0-1 Low Early ambulation 2 Moderate Order ONE of the following: *Sequential Compression Device (SCD) *Heparin 5000 units SQ BID 3-4 Higher Order ONE of the following medications: *Heparin 5000 units SQ TID *Enoxaparin/Lovenox 40 mg SQ daily (WT < 150 kg, CrCl > 30 mL/min) *Enoxaparin/Lovenox 30 mg SQ daily (WT < 150 kg, CrCl > 10-29 mL/min) *Enoxaparin/Lovenox 30 mg SQ BID (WT < 150 kg, CrCl > 30 mL/min) AND/OR *Sequential Compression Device (SCD) 5 or more Highest Order ONE of the following medications: *Heparin 5000 units SQ TID (Preferred with Epidurals) *Enoxaparin/Lovenox 40 mg SQ daily (WT < 150 kg, CrCl > 30 mL/min) *Enoxaparin/Lovenox 30 mg SQ daily (WT < 150 kg, CrCl > 10-29 mL/min) *Enoxaparin/Lovenox 30 mg SQ BID (WT < 150 kg, CrCl > 30 mL/min) AND *Sequential Compression Device (SCD) Assessment and Plan Problem List: (1) Abdominal pain ICD Codes: R10.9 - Unspecified abdominal pain Status: Acute Plan: Abdominal pain Intractable N/V This is a 37-year-old female with a past medical history which includes HTN, Osteoarthritis, depression and morbid obesity. Patient is S/P laparoscopic duodenal switch done on February 15 who now presents to the emergency department with abdominal pain and vomiting. She says that 3 days ago she gulped some water and ever since then she has had severe epigastric abdominal pain, nonradiating, constant associated with vomiting and dry heaving. She has not been able to keep anything down. She was seen in the [place] emergency department 03/23/17 and had a abdomen/pelvic CT scan and labs performed all of which were reassuring. She says she has not felt better since then. This AM patient reports the abd pain has improved greatly she only has a mild, "twinge," located in the midepigastric area. Patient report no N/V since last night. Patient is now tolerating clear liquids. - IV fluids - Supportive care - clear liquid diet - Zofran as need for nausea - Reglan Q8H - Consult General surgery, await further recommendations Hypokalemia - replaced - check Mag - recheck potassium 1200 - BMP in AM Depression - Continue patient's home Effexor 37.5 mg daily HTN not on medication monitor BP DVT prophylaxis with SCDs Addendum 03/27/17 1529: patient seen by surgery who cleared for DC home if able to tolerate PO intake of soft diet. Plan to DC home after evening meal in stable condition on soft diet. Patient to follow up with surgery in 1 week New prescription for Carafate provided (2) Nausea & vomiting ICD Codes: R11.2 - Nausea with vomiting, unspecified Status: Acute Assessment and Plan Patient examined. Assessment and plan formulated with Tiffanie Saravia PA-C. I agree with the above. yg clears. feels better. on reglan/ivf/ppi await dr Brandon carey. advance diet Problem Qualifiers (1) Abdominal pain: Qualified Codes: R10.10 - Upper abdominal pain, unspecified (2) Nausea & vomiting: Qualified Codes: R11.2 - Nausea with vomiting, unspecified Tiffanie Saravia Mar 27, 2017 07:51 Jason Elam MD Mar 27, 2017 10:32
[2017-03-27 08:14] VITALS: BP 112/58; PULSE 69; RESP 18; TEMP 98.2; O2SAT 98
[2017-03-27] MEDS ORDERED: PANTOPRAZOLE SOD 40 MG DELAYED RELEASE TAB PO SCH ×2 (09:00)
[2017-03-27] MEDS ORDERED: VENLAFAXINE HCL XR 37.5 MG CAP PO SCH (09:00)
[2017-03-27] MEDS: SODIUM CHLORIDE 0.9% FLUSH 10 ML FLUSH IV FLUSH SCH (09:45)
[2017-03-27] MEDS: MORPHINE SULFATE 4 MG/ML INJ IV PUSH PRN (09:51)
[2017-03-27 11:40] VITALS: BP 108/56; PULSE 61; RESP 16; TEMP 98.6; O2SAT 95
--- NOTE | 2017-03-27 12:32 | PD.CONS ---
HPI Consult Requested By Dr. Weeks Reason for Consult Persistent nausea and vomiting, history of bariatric surgery Primary Care Physician Non-Staff History of Present Illness 37yo F who underwent laparoscopic duodenal switch almost 2 months ago presented to the ED with complaints of mid-epigastric pain and persistent nausea and vomiting. The nausea started approximately 3-4 days ago after she gulped some fluids. She immediately began to vomit with continuous nausea. She presented to [facility] in [place] where abdominal CT was performed and essentially negative. She was given Phenergan suppositories by the ER as well as scopolamine and Zofran by our office. She states that she began to feel weak and the pain was consistent so she presented again to the ED for treatment. Review of Systems Constitutional: COMPLAINS OF: Change in appetite Gastrointestinal: COMPLAINS OF: Abdominal pain, Nausea Past Family Social History Past Medical History Hypertension Bipolar Disorder Osteoarthritis Morbid Obesity Past Surgical History Laparoscopic Duodenal Switch Cholecystectomy D&C Eustachian tube surgery Reported Medications Effexor 37.5mg Phenergan Suppositories Zofran Allergies: Coded Allergies: adhesive tape (Verified Allergy, Unknown, TERRIBLE RASH, 03/23/17) PAPER TAPE OK, STERI STRIPS OK Active Ordered Medications Current Medications Medications (Trade) Dose Ordered Sig/Robyn Route Start Time Stop Time Status Last Admin Potassium Chloride/Dextrose/ Sod Cl 1,000 ml @ 125 mls/hr Q8H IV 03/26/17 20:00 03/27/17 04:00 (Reglan Inj) 10 mg Q8HR IV PUSH 03/26/17 22:00 03/26/17 22:54 (Morphine Inj) 4 mg Q3H PRN IV PUSH 03/26/17 19:00 03/27/17 09:51 (NS Flush) 2 ml UNSCH PRN IV FLUSH 03/26/17 19:15 (NS Flush) 2 ml BID IV FLUSH 03/26/17 21:00 (Tylenol) 650 mg Q4H PRN PO 03/26/17 19:15 (Zofran Inj) 4 mg Q6H PRN IVP 03/26/17 19:15 03/27/17 09:50 (Restoril) 15 mg HS PRN PO 03/26/17 19:15 03/26/17 22:55 (Narcan Inj) 0.4 mg UNSCH PRN IV PUSH 03/26/17 19:15 (Milk Of Magnesia Liq) 30 ml Q12H PRN PO 03/26/17 19:15 (Protonix) 40 mg DAILY PO 03/27/17 09:00 03/27/17 09:45 (Phenergan Supp) 25 mg Q6H PRN RECTAL 03/26/17 19:15 (Effexor Xr) 37.5 mg DAILY PO 03/27/17 09:00 03/27/17 09:45 (Tums Chew) 1,000 mg Q2H PRN PO 03/26/17 23:15 03/27/17 02:04 Family History Hypertension Social History Denies smoking, ETOH, or illicit drug use Physical Exam Vital Signs Vital Signs Date Time Temp Pulse Resp B/P (MAP) Pulse Ox O2 Delivery O2 Flow Rate FiO2 03/27/17 11:40 98.6 61 16 108/56 (73) 95 03/27/17 08:14 98.2 69 18 112/58 (76) 98 03/27/17 04:03 98.7 56 16 95/54 (68) 100 03/26/17 23:42 98.1 69 18 124/60 (81) 96 03/26/17 23:21 18 03/26/17 21:03 99.4 60 20 111/62 (78) 99 03/26/17 17:57 84 18 118/74 (89) 98 Room Air 03/26/17 13:35 18 03/26/17 13:34 68 18 150/81 (104) 100 Room Air 03/26/17 13:12 98.2 84 18 157/85 (109) 99 Physical Exam GENERAL: No acute distress SKIN: Warm and dry. CARDIOVASCULAR: Regular rate and rhythm without murmurs, gallops, or rubs. RESPIRATORY: Breath sounds equal bilaterally. No accessory muscle use. GASTROINTESTINAL: Abdomen soft, mild epigastric tenderness to palpation MUSCULOSKELETAL: No cyanosis, or edema. Laboratory Laboratory Tests Test 03/26/17 13:39 03/27/17 03:54 03/27/17 11:20 White Blood Count 11.6 8.8 Red Blood Count 4.56 4.27 Hemoglobin 13.6 12.5 Hematocrit 39.0 36.9 Mean Corpuscular Volume 85.5 86.3 Mean Corpuscular Hemoglobin 29.8 29.2 Mean Corpuscular Hemoglobin Concent 34.9 33.8 Red Cell Distribution Width 16.2 16.3 Platelet Count 276 204 Mean Platelet Volume 9.5 9.5 Neutrophils (%) (Auto) 80.1 54.6 Lymphocytes (%) (Auto) 15.3 37.3 Monocytes (%) (Auto) 4.3 7.2 Eosinophils (%) (Auto) 0.0 0.3 Basophils (%) (Auto) 0.3 0.6 Neutrophils # (Auto) 9.3 4.8 Lymphocytes # (Auto) 1.8 3.3 Monocytes # (Auto) 0.5 0.6 Eosinophils # (Auto) 0.0 0.0 Basophils # (Auto) 0.0 0.1 CBC Comment DIFF FINAL DIFF FINAL Differential Comment Blood Urea Nitrogen 15 9 Creatinine 0.75 0.72 Random Glucose 94 85 Total Protein 7.7 6.4 Albumin 4.0 3.3 Calcium Level 8.7 7.9 Alkaline Phosphatase 104 86 Aspartate Amino Transf (AST/SGOT) 50 41 Alanine Aminotransferase (ALT/SGPT) 92 87 Total Bilirubin 0.5 0.5 Sodium Level 140 142 Potassium Level 3.4 2.8 3.6 Chloride Level 103 106 Carbon Dioxide Level 25.7 27.5 Anion Gap 11 9 Estimat Glomerular Filtration Rate 88 92 Lipase 71 Human Chorionic Gonadotropin, Quant LESS THAN 1 Magnesium Level 1.8 Result Diagram: 03/27/17 0354 03/27/17 1120 Imaging Last Impressions Chest X-Ray 03/26/17 1904 Signed Impressions: Service Date/Time: Sunday, March 26, 2017 19:17 - CONCLUSION: No acute cardiopulmonary disease. Zafar Galvan MD Upper GI Series 03/26/17 0000 Signed Impressions: Service Date/Time: Sunday, March 26, 2017 16:43 - CONCLUSION: Intact postsurgical changes without any strictures, obstruction or leak. Zafar Galvan MD Assessment and Plan Assessment and Plan 37yo F with nausea and vomiting and recent bariatric surgery -Continue with antiemetics -Advance to full liquids, can tolerates that can advance to soft -Will give multivitamin bag and sucralfate for epigastric pain -Electrolytes being replaced -Ok for discharge from surgery standpoint if tolerating soft diet Code Status Full Discussed Condition With Patient and at bedside Attending Statement This patient was examined by myself and Dr. Flaherty and this note was written on his behalf Philippe Frazier Mar 27, 2017 12:32
[2017-03-27] MEDS ORDERED: MULTIVITAMIN INJ 10 ML, THIAMINE INJ 100 MG, FOLIC ACID INJ 1 MG in SODIUM CHLORID 0.9%... IV ONE (13:00)
[2017-03-27] MEDS: SUCRALFATE 1 GM/10 ML CUP PO SCH ×2 (13:06→16:32)
[2017-03-27] MEDS ORDERED: SUCR1S PO (13:41)
[2017-03-27 15:09] VITALS: BP 108/61; PULSE 54; RESP 16; TEMP 98.2; O2SAT 99
[2017-03-27 20:26] VITALS: BP 124/67; PULSE 68; RESP 18; TEMP 98.9; O2SAT 97
== END 2017-03-27 21:43 | disposition home or self-care (01) ==
LOC: NEPD 12:55 → NEDA 18:54 → NEPGCP 19:34
PROVIDERS: ADMIT Hospitalist; ATTEND Hospitalist
DX: R10.13 Epigastric pain (principal); R11.2 Nausea with vomiting, unspecified; R53.1 Weakness; R05 Cough; D72.829 Elevated white blood cell count, unspecified; I10 Essential (primary) hypertension; G47.30 Sleep apnea, unspecified; F41.9 Anxiety disorder, unspecified; F31.9 Bipolar disorder, unspecified; M19.90 Unspecified osteoarthritis, unspecified site; E66.01 Morbid (severe) obesity due to excess calories; Z98.84 Bariatric surgery status; Z79.899 Other long term (current) drug therapy; Z87.891 Personal history of nicotine dependence
CPT/HCPCS: 71045; 74241; 80053; 83690; 83735; 84132; 84702; 85025; 96361; 96365; 96366; 96372; 96375; 96376; 97161; 99285; G0378; G8987; G8988; J1200; J2270; J2405; J2550; J2765; J3411; J3480; J7030; J7040

== ENCOUNTER 2017-07-12 08:47 | Emergency (ER) | payer OTHER ==
[~2017-07-12 08:47] MED LIST changes: +SUCR1S PO
[2017-07-12 08:49] VITALS: BP 144/71; PULSE 56; RESP 18; TEMP 98.8; O2SAT 98
[2017-07-12] MEDS ORDERED: SODIUM CHLOR 0.9% 1000 ML INJ 1,000 ML IV SCH (09:27)
[2017-07-12] MEDS ORDERED: SODIUM CHLORIDE 0.9% FLUSH 10 ML FLUSH IV FLUSH PRN (09:30)
[2017-07-12] MEDS ORDERED: MORPHINE SULFATE 8 MG/ML INJ IV PUSH ONE (09:30)
[2017-07-12] MEDS ORDERED: PROCHLORPERAZINE INJ 10 MG/2 ML VIAL IV PUSH ONE (09:30)
[2017-07-12 09:45] VITALS: O2SAT 99
[2017-07-12 10:12] LABS: AUTOMATED NEUTROPHIL # 8.5 TH/MM3 (1.8-7.7); BASOPHIL # 0.1 TH/MM3 (0-0.2); BASOPHIL % 0.5 % (0.0-2.0); HEMATOCRIT 42.2 % (35.0-46.0); LYMPH % 20.7 % (9.0-44.0); LYMPHOCYTE # 2.5 TH/MM3 (1.0-4.8); MEAN CELL VOLUME 91.9 FL (80.0-100.0); MEAN CORPUSCULAR HEMOGLOBIN 30.6 PG (27.0-34.0); MEAN CORPUSCULAR HGB CONC 33.3 % (32.0-36.0); MEAN PLATELET VOLUME 9.8 FL (7.0-11.0); MONO % 6.8 % (0.0-8.0); MONOCYTE # 0.8 TH/MM3 (0-0.9); PLATELET COUNT 298 TH/MM3 (150-450); RED BLOOD COUNT 4.58 MIL/MM3 (4.00-5.30); RED CELL DISTRIBUTION WIDTH 14.3 % (11.6-17.2); WHITE BLOOD COUNT 11.9 TH/MM3 (4.0-11.0)
[2017-07-12 10:22] LABS: BACTERIA, URINE RARE /hpf; BLOOD, URINE NEG (NEG); CALCIUM OXALATE CRYSTALS,URINE OCC /hpf; GLUCOSE,URINE NEG (NEG); KETONE, URINE 80 mg/dL (NEG); MUCUS URINE FEW /lpf (OCC); NITRITE,URINE NEG (NEG); PH, URINE 6.5 (5.0-8.5); SQUAMOUS EPITHELIAL CELL URINE 1 /hpf (0-5); URINE COLOR YELLOW (YELLW/STRAW); URINE LEUKOCYTE ESTERASE TRACE (NEG)
[2017-07-12 10:23] LABS: BILIRUBIN, URINE NEG (NEG)
[2017-07-12] MEDS ORDERED: DIATRIZOATE MEGLUM/DIATRIZOATE SOD 9 ML CUP ONE (10:24)
[2017-07-12 10:37] LABS: ALKALINE PHOSPHATASE 118 U/L (45-117); ALT (GPT) 50 U/L (10-53); TOTAL BILIRUBIN ADULT 0.5 MG/DL (0.2-1.0)
[2017-07-12 10:58] LABS: ALBUMIN 4.1 GM/DL (3.4-5.0); AST (GOT) 32 U/L (15-37); BICARBONATE 25.4 MEQ/L (21.0-32.0); BLOOD UREA NITROGEN 10 MG/DL (7-18); CALCIUM 9.1 MG/DL (8.5-10.1); CHLORIDE 105 MEQ/L (98-107); CREATININE 0.64 MG/DL (0.50-1.00); GLOMERULAR FILTRATION RATE 106 ML/MIN (>89); GLUCOSE,RANDOM 98 MG/DL (74-106); SODIUM (NA) 140 MEQ/L (136-145)
[2017-07-12] MEDS ORDERED: SODIUM CHLOR 0.9% 1000 ML INJ 1,000 ML IV ONE (12:00)
[2017-07-12] MEDS ORDERED: IOHEXOL 350 MG/ML 10 ML VIAL (for RAD DIAG) IVCONTRAST ONE (13:13)
[2017-07-12] MEDS ORDERED: ALUMINUM/MAGNESIUM/SIMETH 30 ML CUP PO ONE (13:15)
[2017-07-12] MEDS ORDERED: LIDOCAINE VISCOUS 2% SOLN 15 ML UDC PO ONE (13:15)
--- NOTE | 2017-07-12 13:26 | RADRPT ---
EXAM DATE: 07/12/2017 1:18 PM EDT AGE/SEX: 37 years / Female INDICATIONS: Upper right quadrant abdominal pain. CLINICAL DATA: This is the patient's initial encounter. Patient reports that signs and symptoms have been present for 3 days and indicates a pain score of 8/10. MEDICAL/SURGICAL HISTORY: Cardiovascular disease. Cholecystectomy. Hysterectomy. Bariatric rodríguez oz. ORAL CONTRAST: Partial prescribed oral contrast ingested. RADIATION DOSE: 15.52 CTDI (mGy) COMPARISON: [facility] [place]BDOMEN & PELVIS W CONTRAST, 02/24/2017. . TECHNIQUE: Multiple contiguous axial images were obtained through the abdomen and pelvis following b olus infusion of 95 ml Omnipaque 350 (iohexol) nonionic water-soluble contrast as a single exam dos e. Partial prescribed oral contrast ingested. Using automated exposure control and adjustment of the mA and/or kV according to patient size, the radiation dose was kept as low as reasonably achievable to obtain optimal diagnostic quality images. FINDINGS: Lower Lungs: The visualized lower lungs are clear. Liver: The liver has a homogeneous density without space-occupying lesion. There is no dilation of th e biliary tree. Spleen: Homogeneous density without enlargement. Pancreas: Unremarkable without mass or calcification. Kidneys: Normal in size and shape. No evidence of mass or hydronephrosis. Adrenal Glands: Unremarkable. No right or left adrenal mass is demonstrated. Aorta: The aorta and proximal iliac vessels are grossly unremarkable without aneurysmal dilation. Bowel/Mesentery: The bowel loops are grossly unremarkable. The cecum and sigmoid colon have a normal configuration. Postsurgical changes are seen at the level the stomach consistent with patient's pacheco brisa bypass. These findings are stable compared to the prior exam there is no inflammatory changes inv olving the small large bowel. No free fluid is seen. The appendix is unremarkable. Abdominal Wall: Intact. Retroperitoneum: No evidence of adenopathy in the retrocrural, para-aortic, or deep pelvic regions. Bladder: Contours are smooth. Reproductive Organs: No abnormal masses or calcifications seen. Inguinal: The inguinal region is unremarkable without evidence of adenopathy. Bony Structures: Mild degenerative changes. No significant change compared to the prior study. CONCLUSION: 1. No acute pathology. 2. No significant changes compared to the prior study. Electronically signed by: Dm Shea MD 07/12/2017 1:25 PM EDT
[2017-07-12] MEDS ORDERED: PROMETHAZINE INJ 25 MG/ML VIAL IM ONE (13:30)
[2017-07-12] MEDS ORDERED: PROC10TA PO (13:46)
--- NOTE | 2017-07-12 13:47 | PD ---
HPI Chief Complaint: GI Complaint Time Seen by Provider: 09:03 Travel History International Travel<30 days: No Contact w/Intl Traveler<30days: No Traveled to known affect area: No History of Present Illness HPI 37-year-old female arrives and complains of epigastric and right upper quadrant abdominal pain for about 12 hours. She reports nausea and vomiting. Any oral intake causes vomiting. 5 months prior she underwent a duodenal switch done by Dr. Taylor. She has had intermittent nausea and pain since. She states it feels as though there is wax in region of the right upper quadrant. Liquid Phenergan and ODT Zofran were helpful at home. No fever. PFSH Past Medical History Asthma: No Blood Disorders: No Anxiety: No Depression: No Heart Rhythm Problems: No Cancer: No Cardiovascular Problems: No High Cholesterol: No Chemotherapy: No Chest Pain: No Congestive Heart Failure: No COPD: No Diabetes: No Diminished Hearing: No Endocrine: No Gastrointestinal Disorders: Yes ( OBESITY) Genitourinary: No Hepatitis: No Hiatal Hernia: No Hypertension: Yes Immune Disorder: No Implanted Vascular Access Dvce: No Musculoskeletal: No Neurologic: No Psychiatric: No Reproductive: No Respiratory: No Radiation Therapy: No Sleep Apnea: No Thyroid Disease: No ?: Not : 2 Para: 2 Past Surgical History Abdominal Surgery: Yes (DUODENAL SWITCH feb 15 2017) AICD: No Cholecystectomy: Yes Ear Surgery: No Endocrine Surgery: No Eye Surgery: No Genitourinary Surgery: No Gynecologic Surgery: Yes (hysterectomy) Hysterectomy: Yes (2016) Joint Replacement: No Neurologic Surgery: No Oral Surgery: Yes (TUBES IN EARS CHILD) Pacemaker: No Thoracic Surgery: No Other Surgery: Yes Social History Alcohol Use: Yes (on occasion) Tobacco Use: No Substance Use: No Allergies-Medications (Allergen,Severity, Reaction): Coded Allergies: adhesive tape (Verified Allergy, Unknown, TERRIBLE RASH, 03/23/17) PAPER TAPE OK, STERI STRIPS OK Reported Meds & Prescriptions Reported Meds & Active Scripts Active Prochlorperazine Maleate 10 Mg Tab 10 Mg PO Q6H PRN Sucralfate Liq (Sucralfate) 1 Gram/10 Ml Nessa 1 Gm PO ACHS 14 Days Phenergan Supp (Promethazine HCl) 25 Mg Supp 25 Mg RECTAL Q6H PRN Reported Protonix (Pantoprazole Sodium) 40 Mg Tab 40 Mg PO DAILY Effexor XR 24 HR (Venlafaxine HCl) 37.5 Mg Cap 37.5 Mg PO DAILY Review of Systems Except as stated in HPI: all other systems reviewed are Neg General / Constitutional: No: Fever Physical Exam Narrative GENERAL: 37-year-old female pleasant well-nourished well-developed Vital Signs Date Time Temp Pulse Resp B/P (MAP) Pulse Ox O2 Delivery O2 Flow Rate FiO2 07/12/17 09:45 99 07/12/17 08:49 98.8 56 18 144/71 (95) 98 SKIN: Warm and dry. HEAD: Atraumatic. Normocephalic. EYES: Pupils equal and round. No scleral icterus. No injection or drainage. ENT: No nasal bleeding or discharge. Mucous membranes pink and moist. NECK: Trachea midline. No JVD. CARDIOVASCULAR: Regular rate and rhythm. RESPIRATORY: No accessory muscle use. Clear to auscultation. Breath sounds equal bilaterally. GASTROINTESTINAL: Soft. Minimal tenderness palpation in the epigastrium and right upper quadrant. MUSCULOSKELETAL: Extremities without clubbing, cyanosis, or edema. No obvious deformities. NEUROLOGICAL: Awake and alert. No obvious cranial nerve deficits. Motor grossly within normal limits. Five out of 5 muscle strength in the arms and legs. Normal speech. PSYCHIATRIC: Appropriate mood and affect; insight and judgment normal. Data Data Last Documented VS Vital Signs Date Time Temp Pulse Resp B/P (MAP) Pulse Ox O2 Delivery O2 Flow Rate FiO2 07/12/17 09:45 99 07/12/17 08:49 98.8 56 18 144/71 (95) Orders Orders Complete Blood Count With Diff (07/12/17:27) Comprehensive Metabolic Panel (07/12/17:27) Lipase (07/12/17:27) Lactic Acid (07/12/17:27) Urinalysis - C+S If Indicated (07/12/17:27) Ct Abd/Pel W Iv Contrast(Rout) (07/12/17:27) Iv Access Insert/Monitor (07/12/17:27) Ecg Monitoring (07/12/17:) Oximetry (07/12/17 09:27) Sodium Chlor 0.9% 1000 Ml Inj (Ns 1000 M (07/12/17 09:27) Sodium Chloride 0.9% Flush (Ns Flush) (07/12/17 09:30) Morphine Inj (Morphine Inj) (07/12/17 09:30) Ed Urine Pregnancytest Poc (07/12/17 09:27) Prochlorperazine Inj (Compazine Inj) (07/12/17 09:30) Oral Contrast - Adult (07/12/17 10:00) Diatrizoate Liq ( [place] Liq) (07/12/17 10:24) Sodium Chlor 0.9% 1000 Ml Inj (Ns 1000 M (07/12/17 12:00) Al-Mag Hy-Si 40-40-4 Mg/Ml Liq (Mag-Al P (07/12/17 13:15) Lidocaine 2% Viscous (Xylocaine 2% Visco (07/12/17 13:15) Iohexol 350 Inj (Omnipaque 350 Inj) (07/12/17 13:13) Promethazine Inj (Phenergan Inj) (07/12/17 13:30) Ed Discharge Order (07/12/17 13:59) Labs Laboratory Tests Test 07/12/17 09:30 White Blood Count 11.9 TH/MM3 Red Blood Count 4.58 MIL/MM3 Hemoglobin 14.0 GM/DL Hematocrit 42.2 % Mean Corpuscular Volume 91.9 FL Mean Corpuscular Hemoglobin 30.6 PG Mean Corpuscular Hemoglobin Concent 33.3 % Red Cell Distribution Width 14.3 % Platelet Count 298 TH/MM3 Mean Platelet Volume 9.8 FL Neutrophils (%) (Auto) 72.0 % Lymphocytes (%) (Auto) 20.7 % Monocytes (%) (Auto) 6.8 % Eosinophils (%) (Auto) 0.0 % Basophils (%) (Auto) 0.5 % Neutrophils # (Auto) 8.5 TH/MM3 Lymphocytes # (Auto) 2.5 TH/MM3 Monocytes # (Auto) 0.8 TH/MM3 Eosinophils # (Auto) 0.0 TH/MM3 Basophils # (Auto) 0.1 TH/MM3 CBC Comment DIFF FINAL Differential Comment Urine Color YELLOW Urine Turbidity CLEAR Urine pH 6.5 Urine Specific [place] 1.028 Urine Protein 30 mg/dL Urine Glucose (UA) NEG mg/dL Urine Ketones 80 mg/dL Urine Occult Blood NEG Urine Nitrite NEG Urine Bilirubin NEG Urine Urobilinogen 2.0 MG/DL Urine Leukocyte Esterase TRACE Urine RBC LESS THAN 1 /hpf Urine WBC 1 /hpf Urine Squamous Epithelial Cells 1 /hpf Urine Calcium Oxalate Crystals OCC /hpf Urine Bacteria RARE /hpf Urine Mucus FEW /lpf Microscopic Urinalysis Comment CULT NOT INDICATED Blood Urea Nitrogen 10 MG/DL Creatinine 0.64 MG/DL Random Glucose 98 MG/DL Total Protein 8.0 GM/DL Albumin 4.1 GM/DL Calcium Level 9.1 MG/DL Alkaline Phosphatase 118 U/L Aspartate Amino Transf (AST/SGOT) 32 U/L Alanine Aminotransferase (ALT/SGPT) 50 U/L Total Bilirubin 0.5 MG/DL Sodium Level 140 MEQ/L Potassium Level 3.5 MEQ/L Chloride Level 105 MEQ/L Carbon Dioxide Level 25.4 MEQ/L Anion Gap 10 MEQ/L Estimat Glomerular Filtration Rate 106 ML/MIN Lactic Acid Level 0.9 mmol/L Lipase 70 U/L [facility] Medical Decision Making Medical Screen Exam Complete: Yes Emergency Medical Condition: Yes Medical Record Reviewed: Yes Differential Diagnosis Constipation, Gastritis, Acute Cholecystitis, Biliary Colic, Pancreatitis, SIMS , Hepatitis, Bowel Obstruction, Cystitis, Mesenteric Ischemia, AAA, Appendicitis , Renal Stone/Hydronephrosis, GERD, perforated viscous Narrative Course CBC & BMP Diagram 07/12/17 09:30 Total Protein 8.0, Albumin 4.1, Calcium Level 9.1, Alkaline Phosphatase 118 H, Aspartate Amino Transf (AST/SGOT) 32, Alanine Aminotransferase (ALT/SGPT) 50, Total Bilirubin 0.5 Lactic acid 0.9 Lipase 70 Urine no UTI Case discussed with Dr. Fuller at 1:[address] Flaherty is out of town. Patient reassessed at 155 and again at 2:05 PM. The patient is resting comfortably and feels better, is alert and in no distress. The patients results and examination findings were discussed. The repeat examination is unremarkable and benign. The history, exam, diagnostic testing, and current condition do not suggest any significant pathology to warrant further testing, continued ED treatment, admission, or surgical evaluation at this point. The vital signs have been stable. The patient does not have uncontrollable pain, intractable vomiting, or other significant symptoms. The patient's condition is stable and appropriate for discharge. The patient will pursue further outpatient evaluation with a primary care physician or other designated or consulting physician as indicated in the discharge instructions. The patient expressed understanding and was agreeable with this plan. Critical Care Narrative Aggregate critical care time was 35 minutes. Time to perform other separately billable procedures was not included in the critical care time. My time did not include minutes spent treating any other patients simultaneously or on activities that did not directly contribute to the patient's treatment. The services I provided to this patient were to treat and/or prevent clinically significant deterioration that could result in: [Surgical complication I provided critical care services requiring my management, as noted below: Chart data review, documentation time, medication orders and management, vital sign assessments/reviewing monitor data, ordering and reviewing lab tests, ordering and interpreting/reviewing x-rays and diagnostic studies, care of the patient and discussion of the patient with the admitting physicians. Diagnosis Primary Impression: Abdominal pain Qualified Codes: R10.9 - Unspecified abdominal pain Additional Impression: Nausea & vomiting Qualified Codes: R11.2 - Nausea with vomiting, unspecified Referrals: Hussain Flaherty MD 1 day Med/Other Pt SpecificInfo: Prescription(s) given Scripts Prochlorperazine Maleate (Prochlorperazine Maleate) 10 Mg Tab 10 MG PO Q6H Y for NAUSEA OR VOMITING, #10 TAB 0 Refills Prov: Kavon Wynn MD 07/12/17 Disposition: 01 DISCHARGE HOME Condition: Stable Kavon Wynn MD July 12, 2017 13:47
== END 2017-07-12 14:16 | disposition home or self-care (01) ==
LOC: NEPD 08:47
DX: R10.13 Epigastric pain (principal); R10.11 Right upper quadrant pain; R11.2 Nausea with vomiting, unspecified
CPT/HCPCS: 74177; 80053; 81001; 83605; 83690; 84703; 85025; 96361; 96372; 96374; 96375; 99291; J0780; J2270; J2550; J7030; Q9963; Q9967